=== PATIENT | female | born 1965 | race African-American/Black ===

== ENCOUNTER 2017-12-11 12:55 | Inpatient (IN) | payer SELFPAY ==
[2017-12-11 13:42] LABS: ALANINE AMINOTRANSFERASE 33 U/L (9-52); ALKALINE PHOSPHATASE 70 U/L (38-126); ANION GAP 13 (5-19); ASPARTATE AMINO TRANSFERASE 45 U/L (14-36); BILIRUBIN,DIRECT 0.4 mg/dL (0.0-0.4); BILIRUBIN,TOTAL 0.7 mg/dL (0.2-1.3); BLOOD UREA NITROGEN 13 mg/dL (7-20); CALCIUM 9.1 mg/dL (8.4-10.2); CARBON DIOXIDE 26 mmol/L (22-30); CHLORIDE 104 mmol/L (98-107); CREATINE KINASE 58 U/L (30-135); GLUCOSE 190 mg/dL (75-110); POTASSIUM 3.5 mmol/L (3.6-5.0); SODIUM 142.8 mmol/L (137-145); TOTAL PROTEIN 7.9 g/dL (6.3-8.2)
--- NOTE | 2017-12-11 13:49 | RADIOLOGY REPORT (SQ) ---
EXAM DESCRIPTION: CHEST SINGLE VIEW COMPLETED DATE/TIME: 12/11/2017 1:37 pm REASON FOR STUDY: bed 19 cp COMPARISON: Two-view chest 10/28/2014, 10/24/2010 EXAM PARAMETERS: NUMBER OF VIEWS: One view. TECHNIQUE: Single frontal radiographic view of the chest acquired. RADIATION DOSE: NA LIMITATIONS: None. FINDINGS: LUNGS AND PLEURA: No opacities, masses or pneumothorax. No pleural effusion. MEDIASTINUM AND HILAR STRUCTURES: No masses. Contour normal. HEART AND VASCULAR STRUCTURES: Heart normal in size. Normal vasculature. BONES: No acute findings. HARDWARE: None in the chest. OTHER: No other significant finding. IMPRESSION: NO ACUTE RADIOGRAPHIC FINDING IN THE CHEST. TECHNICAL DOCUMENTATION: JOB ID: [id number] [employer]- All Rights Reserved Reading location - IP/workstation name: [email or web address]
[2017-12-11 13:51] LABS: ABSOLUTE MONOCYTES (AUTO) 0.2 10^3/uL (0.1-1.4); ABSOLUTE NEUT (AUTO) 3.3 10^3/uL (1.7-8.2); BASOPHILS % (AUTO) 0.6 % (0-2); EOSINOPHILS % (AUTO) 0.3 % (0-6); HEMATOCRIT 40.2 % (36.0-47.0); HEMOGLOBIN 13.5 g/dL (12.0-15.5); LYMPHOCYTES % (AUTO) 22.9 % (13-45); MEAN CORPUSCULAR HGB CONC 33.6 g/dL (32.0-36.0); MEAN CORPUSCULAR VOLUME 86 fl (80-97); MONOCYTES % (AUTO) 4.1 % (3-13); PLATELET COUNT 204 10^3/uL (150-450); RED BLOOD COUNT 4.65 10^6/uL (3.72-5.28); RED CELL DISTRIBUTION WIDTH 14.5 % (11.5-14.0); SEGMENTED NEUTROPHILS % (AUTO) 72.1 % (42-78); TOTAL CELLS COUNTED % (AUTO) 100 %; WHITE BLOOD COUNT 4.5 10^3/uL (4.0-10.5)
[2017-12-11 13:53] LABS: CREATINE KINASE MB < 0.22 ng/mL (<4.55); TROPONIN I < 0.012 ng/mL
--- NOTE | 2017-12-11 14:05 | ER Document Report ---
ED Medical Screen (RME) - General Chief Complaint: Chest Pain Stated Complaint: CHEST PAIN Time Seen by Provider: 12/11/17 13:57 Notes: RAPID MEDICAL EVALUATION DISCLOSURE I have seen this patient as part of a Rapid Medical Evaluation and, if applicable, placed any initially appropriate orders. The patient will be seen and fully evaluated, including a full history and physical exam, by a provider ( in Main ED or Fast Track) when a room becomes available. 52-year-old female here with complaints of several episodes of dizziness chest pain shortness of breath blurry vision over the past 2 days. She states she does not have any other symptoms right now other than some dizziness. She has not taken anything for the symptoms. She denies any prior history of [place] CHF. EXAM CTAB RRR NOTE The patient states her right is here and she would like to leave AGAINST MEDICAL ADVICE. I have discussed with the patient that she could potentially go home and suffer from , disability, financial hardship. She would like to go because her ride is here however I have discussed with her the possibility that she might be having a heart attack. She would still like to go home despite being aware of these risks. She does acknowledge that she might go home and . JACEK Dominguez was present in the room during this conversation and ask as a witness. The patient would like to think at this time about whether or not she will actually stay for evaluation of her chest pain shortness of breath and other symptoms. TRAVEL OUTSIDE OF THE [place] IN LAST 30 DAYS: No - Related Data Allergies/Adverse Reactions: hydrocodone bitartrate [From Vicodin] Allergy (Verified 03/17/15 10:13) lidocaine [Lidocaine] Allergy (Verified 03/17/15 10:13) propoxyphene napsylate [From Darvocet-N 100] Allergy (Verified 03/17/15 10:13) Past Medical History - Social History Family history: DM, Hypertension, Malignancy - Past Medical History Cardiac Medical History: Reports: Hx Hypertension Neurological Medical History: Reports: Hx Migraine GI Medical History: Reports: Hx Gastroesophageal Reflux Disease Musculoskeltal Medical History: Reports Hx Musculoskeletal Trauma Past Surgical History: Reports: Hx Abdominal Surgery - hernia, Hx Breast Surgery - L biopsy, Hx Inguinal Hernia, Hx Tubal Ligation - Immunizations Immunizations up to date: Yes Hx Diphtheria, Pertussis, Tetanus Vaccination: Yes Physical Exam - Vital signs Vitals: Pulse Ox 100 12/11/17 12:55 Course - Vital Signs Vital signs: Temp Pulse Resp BP Pulse Ox 100 12/11/17 12:55 - Laboratory Result Diagrams: 12/11/17 13:25 12/11/17 12:39 Laboratory results interpreted by me: 12/11/17 12/11/17 12:39 13:25 RDW 14.5 H Potassium 3.5 L Glucose 190 H AST 45 H
--- NOTE | 2017-12-11 15:02 | ER Document Report ---
ED Cardiac - General Chief Complaint: Chest Pain Stated Complaint: CHEST PAIN Time Seen by Provider: 12/11/17 13:57 TRAVEL OUTSIDE OF THE [place] IN LAST 30 DAYS: No - HPI Notes: 52-year-old female with history of hypertension, noncompliant with medication for the past several years, presents with chest pain. She has been having generalized weakness, lightheadedness, and diaphoresis with exertion over the past week. She developed sharp chest pain with shortness of breath while sweeping today. It quickly resolved. It occurred again while walking and she became concerned. She reports feeling as if she would pass out and vision became blurred. EMS was called. Her blood pressure was elevated around 170/ 101 was given aspirin and nitroglycerin with improvement. Denies any recent long distance travel. No history of clots, hemoptysis, unilateral leg swelling. No hormone replacement therapy. Has strong family history of heart disease. Reports likely high cholesterol as well. - Related Data Allergies/Adverse Reactions: hydrocodone bitartrate [From Vicodin] Allergy (Verified 03/17/15 10:13) lidocaine [Lidocaine] Allergy (Verified 03/17/15 10:13) propoxyphene napsylate [From Darvocet-N 100] Allergy (Verified 03/17/15 10:13) Past Medical History - Social History Smoking Status: Current Every Day Smoker - Patient denies smoking to this provider Chew tobacco use (# tins/day): No Frequency of alcohol use: None Drug Abuse: None Family History: Reviewed & Not Pertinent, DM, Hypertension, Malignancy Patient has suicidal ideation: No Patient has homicidal ideation: No - Past Medical History Cardiac Medical History: Reports: Hx Hypertension Neurological Medical History: Reports: Hx Migraine Renal/ Medical History: Denies: Hx Peritoneal Dialysis GI Medical History: Reports: Hx Gastroesophageal Reflux Disease, Hx Ulcer Musculoskeletal Medical History: Reports Hx Musculoskeletal Trauma Past Surgical History: Reports: Hx Abdominal Surgery - hernia, Hx Breast Surgery - L biopsy, Hx Inguinal Hernia, Hx Tubal Ligation - Immunizations Immunizations up to date: Yes Hx Diphtheria, Pertussis, Tetanus Vaccination: Yes Review of Systems - Review of Systems Notes: REVIEW OF SYSTEMS: CONSTITUTIONAL: -fevers, -chills, + lightheadedness, dizziness, fatigue EENT: -eye pain, -difficulty swallowing, -nasal congestion CARDIOVASCULAR: +chest pain, -syncope. RESPIRATORY: -cough, +SOB GASTROINTESTINAL: -abdominal pain, +nausea, -vomiting, -diarrhea GENITOURINARY: -dysuria, -hematuria MUSCULOSKELETAL: -back pain, -neck pain SKIN: -rash or skin lesions. HEMATOLOGIC: -easy bruising or bleeding. LYMPHATIC: -swollen, enlarged glands. NEUROLOGICAL: -altered mental status or loss of consciousness, -headache, - neurologic symptoms PSYCHIATRIC: -anxiety, -depression. Physical Exam - Vital signs Vitals: Pulse Ox 100 12/11/17 12:55 - Notes Notes: PHYSICAL EXAMINATION: GENERAL: Well-appearing, well-nourished and in no acute distress. HEAD: Atraumatic, normocephalic. EYES: Pupils equal round and reactive to light, extraocular movements intact, conjunctiva are normal. ENT: nares patent, oropharynx clear without exudates. Moist mucous membranes. NECK: Normal range of motion, supple without lymphadenopathy LUNGS: Breath sounds clear to auscultation bilaterally and equal. No wheezes rales or rhonchi. HEART: Regular rate and rhythm, no chest wall tenderness ABDOMEN: Soft, nontender, normoactive bowel sounds. No guarding, no rebound. No masses appreciated. EXTREMITIES: Normal range of motion, no pitting or edema. No cyanosis. NEUROLOGICAL: Cranial nerves grossly intact. Normal speech, normal gait. Normal sensory and motor exams. PSYCH: Normal mood, normal affect. SKIN: Warm, Dry, normal turgor, no rashes or lesions noted. Course - Re-evaluation Re-evalutation: 12/11/17 15:02 Multiple risk factors for coronary disease. New T-wave flattening inferior and lateral leads compared to EKG done 2 years ago. First troponin normal. Discussed with hospitalist for admission. Repeat troponin pending. - Vital Signs Vital signs: Temp Pulse Resp BP Pulse Ox 100 12/11/17 12:55 - Laboratory Result Diagrams: 12/11/17 13:25 12/11/17 12:39 Laboratory results interpreted by me: 12/11/17 12/11/17 12:39 13:25 RDW 14.5 H Potassium 3.5 L Glucose 190 H AST 45 H - Diagnostic Test Radiology reviewed: Reports reviewed - EKG Interpretation by Me Rhythm: NSR When compared to previous EKG there are: Changes noted Discharge - Discharge Clinical Impression: Chest pain, Hypertension Disposition: ADMITTED OBSERVATION Admitting Provider: Hospitalist Unit Admitted: Telemetry
[2017-12-11] MEDS ORDERED: ONDANSETRON 4 MG TAB.RAPDIS PO PRN (17:38)
[2017-12-11] MEDS ORDERED: ACETAMINOPHEN 325 MG TABLET PO PRN (17:38)
[2017-12-11] MEDS ORDERED: DIPHENHYDRAMINE HCL 25 MG CAPSULE PO PRN (17:45)
[2017-12-11] MEDS ORDERED: DEXTROSE 50%-WATER 25 GM/50 ML DISP.SYRIN IV PRN ×2 (17:47)
[2017-12-11] MEDS ORDERED: GLUCAGON,HUMAN RECOMB 1 MG INJ SUBCUT PRN (17:47)
[2017-12-11] MEDS ORDERED: DEXTROSE 40% GEL 15 GM TUBE PO PRN ×2 (17:47)
[2017-12-11] MEDS ORDERED: HYDRALAZINE HCL INJ/PF 20 MG/1 ML SDV IV PRN (17:51)
--- NOTE | 2017-12-11 18:19 | PDOC H&P ---
History of Present Illness Admission Date/PCP: 12/11/17 15:19 The patient does not have a primary care provider History of Present Illness: RELL GREGORY is a 52 year old female who presented to the emergency room with chest pain and abdominal pain. Her past medical history significant for hypertension for which she has not been treated in quite some time. She states that for the past several months she has been having issues where she gets somewhat weak and dizzy. She knows that her blood pressure is up. She has no primary care provider because she does not have insurance and she has not been on any medications in september. She also reports a several month history of abdominal issues. She said she frequently has epigastric pain that is worse after she eats greasy foods. She states that she also has nausea and at times sometimes vomits. She also has issues with her bowel movements and sometimes has constipation. Again this is been going on for several months. Today she presents to the emergency room after having 2 episodes of sharp stabbing change pain in the middle of her chest. It rated it radiated up towards her neck. She states that she was somewhat lightheaded and weak and that she felt as if she was going to pass out. She sat down and rested and the pain resolved. The pain recurred again and EMS was called. She had accelerated hypertension when they arrived. Her blood pressure was reportedly 170/101. She was given a nitroglycerin with relief of her pain. She was brought to the emergency room for further evaluation and treatment. She does have a strong family history of coronary artery disease. Past Medical History Cardiac Medical History: Reports: Hypertension Pulmonary Medical History: Reports: None EENT Medical History: Reports: None Neurological Medical History: Reports: Migraine Endocrine Medical History: Reports: None Renal/ Medical History: Reports: None Malignancy Medical History: Reports: None GI Medical History: Reports: Gastroesophageal Reflux Disease Musculoskeltal Medical History: Reports: None Skin Medical History: Reports: None Psychiatric Medical History: Reports: None Traumatic Medical History: Reports: None Hematology: Reports: None Infectious Medical History: Reports: None Past Surgical History Past Surgical History: Reports: Tubal Ligation Social History Information Source: Patient Lives with: Family Smoking Status: Current Every Day Smoker - Patient denies smoking to this provider Frequency of Alcohol Use: None Drugs: None Hx Prescription Drug Abuse: No Family History Family History: Reviewed & Not Pertinent, DM, Hypertension, Malignancy Parental Family History Reviewed: Yes Children Family History Reviewed: Yes Sibling(s) Family History Reviewed.: Yes Medication/Allergy Home Medications: Diphenhydramine HCl [Benadryl 25 mg Capsule] 25 mg PO DAILYP PRN 12/11/17 Allergies/Adverse Reactions: hydrocodone bitartrate [From Vicodin] Allergy (Verified 03/17/15 10:13) lidocaine [Lidocaine] Allergy (Verified 03/17/15 10:13) propoxyphene napsylate [From Darvocet-N 100] Allergy (Verified 03/17/15 10:13) Review of Systems Constitutional: PRESENT: fatigue, weakness Eyes: ABSENT: visual disturbances Ears: ABSENT: hearing changes Nose, Mouth, and Throat: PRESENT: headache(s) Cardiovascular: PRESENT: chest pain, palpitations Respiratory: PRESENT: dyspnea Gastrointestinal: PRESENT: abdominal pain, constipation, heartburn, nausea, vomiting Genitourinary: ABSENT: dysuria, hematuria Musculoskeletal: ABSENT: joint swelling Integumentary: ABSENT: rash, wounds Psychiatric: ABSENT: anxiety, depression, homidical ideation, suicidal ideation Hematologic/Lymphatic: ABSENT: easy bleeding, easy bruising Physical Exam Vital Signs: Temp Pulse Resp BP Pulse Ox 98.2 F 12 142/82 H 94 12/11/17 17:02 12/11/17 17:02 12/11/17 17:02 12/11/17 17:02 General appearance: PRESENT: no acute distress, well-developed, well-nourished Head exam: PRESENT: atraumatic, normocephalic Eye exam: PRESENT: conjunctiva pink, EOMI, PERRLA. ABSENT: scleral icterus Ear exam: PRESENT: normal external ear exam Mouth exam: PRESENT: moist, tongue midline Neck exam: ABSENT: carotid bruit, JVD, lymphadenopathy, thyromegaly Respiratory exam: PRESENT: clear to auscultation danay. ABSENT: rales, rhonchi, wheezes Cardiovascular exam: PRESENT: RRR. ABSENT: diastolic murmur, rubs, systolic murmur Pulses: PRESENT: normal dorsalis pedis pul Vascular exam: PRESENT: normal capillary refill GI/Abdominal exam: PRESENT: normal bowel sounds, soft. ABSENT: distended, guarding, mass, organolmegaly, rebound, tenderness Rectal exam: PRESENT: deferred Extremities exam: PRESENT: full ROM. ABSENT: calf tenderness, clubbing, pedal edema Neurological exam: PRESENT: alert, awake, oriented to person, oriented to place , oriented to time, oriented to situation, CN II-XII grossly intact. ABSENT: motor sensory deficit Psychiatric exam: PRESENT: appropriate affect, normal mood. ABSENT: homicidal ideation, suicidal ideation Skin exam: PRESENT: dry, intact, warm. ABSENT: cyanosis, rash Results Impressions: Chest X-Ray 12/11/17 12:57 IMPRESSION: NO ACUTE RADIOGRAPHIC FINDING IN THE CHEST. Assessment & Plan - Diagnosis (1) Chest pain Is this a current diagnosis for this admission?: Yes Plan: The patient does have a strong family history of coronary artery disease. She does have some ST wave changes noted on her EKG as well. She will be placed in observation in the hospital. We will trend her serial troponins overnight. If these remain negative she will have a stress test performed in the morning. It also sounds as if the patient has been having significant GI issues. This is high on the differential as well. She could be having esophageal spasm, peptic ulcer disease or gallbladder disease. I am going to obtain a repeat liver panel in the morning. She does have a mildly elevated AST. She also will have an abdominal ultrasound. We will follow-up with these results. I am going to place her on PPI therapy. (2) Hypertensive urgency Is this a current diagnosis for this admission?: Yes Plan: The patient had hypertensive urgency when EMS arrived that resolved with nitroglycerin. Blood pressure has come down but is still in the she still has a systolic pressure in the 140s. I am going to place the patient on lisinopril. She would need medications on the $4 list. She certainly needs a primary care provider and we will try to get [facility]. (3) GERD (gastroesophageal reflux disease) Is this a current diagnosis for this admission?: Yes Plan: This has been untreated and she has been having worsening issues. I am going to place her on Prevacid twice daily. Certainly this could be contributing to her chest discomfort. (4) Hyperglycemia Is this a current diagnosis for this admission?: Yes Plan: The patient's blood sugar is 190. This could be reactive 2 her chest pain. However she could be developing diabetes. I am going to get a hemoglobin A1c and will check a chemistry panel in the morning. (5) Hypokalemia Is this a current diagnosis for this admission?: Yes Plan: This will be repleted. She will have a level drawn in the morning. - Time Time Spent: 50 to 70 Minutes - Inpatient Certification Medical Necessity: Other - The patient will be placed in observation in the hospital. She will have a stress test and abdominal ultrasound and repeat labs in the morning. I am hopeful that her hospitalization will span less than 2 midnights and she can be discharged tomorrow afternoon. She will need to [facility] at [facility] at discharge.
[2017-12-11 18:56] LABS: CREATINE KINASE MB 0.23 ng/mL (<4.55)
[2017-12-11 19:00] LABS: TROPONIN I < 0.012 ng/mL
[2017-12-11] MEDS ORDERED: LISINOPRIL 10 MG TABLET PO ONE (20:00)
[2017-12-11] MEDS ORDERED: ENOXAPARIN SODIUM INJ 40 MG/0.4 ML DISP.SYRIN SUBCUT ONE (20:00)
--- NOTE | 2017-12-11 20:08 | RADIOLOGY REPORT (SQ) ---
EXAM DESCRIPTION: U/S ABDOMEN COMPLETE W/O DOP COMPLETED DATE/TIME: 12/11/2017 7:22 pm REASON FOR STUDY: abdominal pain, chest pain COMPARISON: None TECHNIQUE: Dynamic and static grayscale images acquired of the abdomen and recorded on PACS. Irono arya selected color Doppler and spectral images recorded. LIMITATIONS: Study limited due to acoustical interference from fat or from air in the bowel. FINDINGS: PANCREAS: Poorly seen secondary to acoustical interference from fat or from air in the bow el. LIVER: No masses. No dilated ducts. LIVER VASCULATURE: Normal directional flow of the main portal vein and hepatic veins. GALLBLADDER: No stones. Normal wall thickness. No pericholecystic fluid. ULTRASOUND-DETECTED GARSIA'S SIGN: Negative. INTRAHEPATIC DUCTS AND COMMON DUCT:Poorly seen secondary to acoustical interference from fat or from air in the bowel. INFERIOR VENA CAVA: Normal flow. AORTA: No aneurysm. RIGHT KIDNEY: Normal size. Normal echogenicity. No solid or suspicious masses. No hydronephrosis. No calcifications. LEFT KIDNEY: Normal size. Normal echogenicity. No solid or suspicious masses. No hydronephrosis. No calcifications. SPLEEN:Normal size. No solid masses. PERITONEAL AND PLEURAL SPACES: No ascites or effusions. OTHER: No other significant finding. IMPRESSION: No acute findings identified. TECHNICAL DOCUMENTATION: JOB ID: [id number] 2010 [employer]- All Rights Reserved Reading location - IP/workstation name: [email or web address]
--- NOTE | 2017-12-11 23:14 | EKG REPORT ---
SEVERITY:- ABNORMAL ECG - SINUS RHYTHM NONSPECIFIC T ABNORMALITIES, DIFFUSE LEADS : Confirmed by: Izabela Diggs 11-Dec-2017 23:13:38
[2017-12-12 01:25] LABS: CREATINE KINASE MB < 0.22 ng/mL (<4.55); TROPONIN I < 0.012 ng/mL
[2017-12-12] MEDS ORDERED: LANSOPRAZOLE 30 MG TAB.RAP.DR PO SCH (06:00)
[2017-12-12 06:47] LABS: HEMATOCRIT 38.6 % (36.0-47.0); HEMOGLOBIN 12.9 g/dL (12.0-15.5); MEAN CORPUSCULAR HGB CONC 33.3 g/dL (32.0-36.0); MEAN CORPUSCULAR VOLUME 87 fl (80-97); PLATELET COUNT 201 10^3/uL (150-450); RED BLOOD COUNT 4.44 10^6/uL (3.72-5.28); RED CELL DISTRIBUTION WIDTH 14.5 % (11.5-14.0); WHITE BLOOD COUNT 4.4 10^3/uL (4.0-10.5)
[2017-12-12 07:02] LABS: ANION GAP 9 (5-19); BLOOD UREA NITROGEN 19 mg/dL (7-20); CALCIUM 8.7 mg/dL (8.4-10.2); CARBON DIOXIDE 32 mmol/L (22-30); CHLORIDE 104 mmol/L (98-107); CHOLESTEROL 153.94 mg/dL (0-200); CREATINE KINASE 43 U/L (30-135); GLUCOSE 104 mg/dL (75-110); PHOSPHORUS 3.8 mg/dL (2.5-4.5); POTASSIUM 3.5 mmol/L (3.6-5.0); TRIGLYCERIDES 70 mg/dL (<150)
[2017-12-12 07:13] LABS: CREATINE KINASE MB 0.25 ng/mL (<4.55); DIRECT LDL 66 mg/dL (<100)
[2017-12-12 07:21] LABS: TROPONIN I < 0.012 ng/mL
[2017-12-12 08:25] LABS: APPEARANCE,URINE CLEAR; BILIRUBIN,URINE NEGATIVE (NEGATIVE); COLOR,URINE YELLOW; GLUCOSE, URINE NEGATIVE (NEGATIVE); KETONES,URINE NEGATIVE (NEGATIVE); LEUKOCYTE ESTERASE,URINE NEGATIVE (NEGATIVE); NITRITE,URINE NEGATIVE (NEGATIVE); PROTEIN,URINE NEGATIVE (NEGATIVE); URINE SPECIFIC GRAVITY 1.024
[2017-12-12] MEDS: LISINOPRIL 10 MG TABLET PO SCH (11:46)
[2017-12-12] MEDS: ENOXAPARIN SODIUM INJ 40 MG/0.4 ML DISP.SYRIN SUBCUT SCH (11:47)
[2017-12-12] MEDS: DOCUSATE SODIUM 100 MG CAPSULE PO SCH (11:54)
[2017-12-12] MEDS ORDERED: REGADENOSON INJ 0.4 MG/5 ML DISP.SYRIN IV ONE (13:21)
--- NOTE | 2017-12-12 15:07 | DRAGON STRESS TEST REPORT ---
INTRAVENOUS LEXISCAN CARDIOLITE STRESS TEST USING SINGLE PHOTON EMMISION COMPUTERIZED TOMOGRAPHIC. DATE OF PROCEDURE: December 12, 2017, INDICATION : Chest pain CARDIAC RISK FACTORS: Diabetes, hypertension, tobacco abuse, family history of CAD RESTING EKG: Sinus rhythm without any baseline ST-T wave changes STRESS EKG: No significant ST segment changes noted with LexiScan bolus REASON FOR TERMINATION: Protocol. PROCEDURE REPORT: Baseline heart rate 57 beats per minute with blood pressure of 123/88. Patient had no significant complaints. Patient was bolused with Lexiscan 0.4 mg intravenously followed by saline bolus. Heart rate at 2 minutes post bolus 103 with a blood pressure of 158/70. 3 minutes post bolus heart rate 94 with blood pressure of 149/94. No significant EKG changes were noted. Patient had no significant complaints during the procedure or postprocedure. CONCLUSIONS: Normal EKG and hemodynamic response to IV LexiScan. NUCLEAR DATA: At rest the patient was given 13.87 millicuries of technetium 99 sestamibi injected intravenously. As per protocol rest gated SPECT images were obtained. On day of stress test, the patient was given intravenous LexiScan at a dose of 0.4 mg in 5 mL intravenously, followed by flush with normal saline. Subsequently the stress dose of 41.9 millicuries of technetium 99 sestamibi was injected intravenously. As per protocol stress gated images were obtained. NUCLEAR INTERPRETATION: Both raw and processed data were used for interpretation. Visual, qualitative, computer-generated quantitative data was used. There was good myocardial uptake of technetium compound. Motion artifact and soft tissue attenuations were noted. Increased visceral uptake was noted. No definitive areas of transient perfusion defect noted, No definitive areas of fixed perfusion defect or scars noted. EKG gated imaging showed LV EF at 60 %, rest and stress gated EF similar visually. T. I D. ratio was 1.26. Lung heart ratio noted to be within normal limits 0.32. No significant extracardiac and abnormal radiotracer activities were noted. RV free wall uptake was noted to be WNL. IMPRESSION: Also refer to comments under nuclear interpretation. Also test results needs to be interpreted in the context of pretest probability. 1. No definitive areas of transient perfusion defect noted. 2. There is no definitive scintigraphic evidence of myocardial infarction/scar. 3. EKG gated imaging shows left ventricular ejection fraction of approx. 60 %. 4. Borderline transient ischemic dilatation noted however based on recent literature review, Journal of nuclear medicine August 2013, transient ischemic dilatation in the absence of significant perfusion abnormality may not necessarily increased cardiovascular event rate. Clinical correlation requested as occasionally single vessel disease or balanced ischemia could be missed. In approximately 10% of the cases Lexiscan may not cause adequate vasodilatory stress. RECOMMENDATIONS: Aggressive risk factor modification and medical management. Further evaluation may be needed if continued symptoms or other high risk indicators are noted on clinical evaluation. Close cardiology follow-up is also recommended. Clinical correlation with echocardiogram derived ejection fraction. Inability to exercise by itself can lead to increased cardiovascular event risks. Consider cardiology consultation and or follow-up if clinically indicated. I am available for cardiology evaluation and consultation if requested by the wildlife management professor, unless patient already has a mounting inspector. Dr. Jael Diggs. MRCP Board certified in cardiology and sleep medicine. Board certified in nuclear cardiology, adult echocardiography. ARCENIO
[2017-12-12] MEDS ORDERED: LANSOPRAZOLE 30 MG TAB.RAP.DR PO ONE (16:30)
--- NOTE | 2017-12-12 20:36 | PDOC PROGRESS REPORT ---
Subjective Progress Note for:: 12/12/17 Subjective:: no furhtur CP, no dyspnea, some epigastric abd pain with no nausea or emesis. Reason For Visit: CHEST PAIN Physical Exam Vital Signs: Temp Pulse Resp BP Pulse Ox 98.6 F 63 20 124/81 99 12/12/17 15:39 12/12/17 15:39 12/12/17 15:39 12/12/17 15:39 12/12/17 15:39 Intake & Output 12/11/17 12/12/17 12/13/17 06:59 06:59 06:59 Intake Total 320 Output Total 1100 Balance -780 Weight 92.3 kg General appearance: PRESENT: no acute distress, cooperative, well-developed, well-nourished Head exam: PRESENT: atraumatic, normocephalic Eye exam: ABSENT: conjunctival injection, scleral icterus Ear exam: PRESENT: normal external ear exam Mouth exam: PRESENT: moist, tongue midline Respiratory exam: PRESENT: clear to auscultation danay, unlabored. ABSENT: rales , rhonchi, wheezes Cardiovascular exam: PRESENT: RRR. ABSENT: diastolic murmur, systolic murmur Pulses: PRESENT: normal radial pulses GI/Abdominal exam: PRESENT: normal bowel sounds, soft. ABSENT: distended, guarding, tenderness Rectal exam: PRESENT: deferred Extremities exam: ABSENT: pedal edema Neurological exam: PRESENT: alert, awake, oriented to person, oriented to place , oriented to situation, CN II-XII grossly intact Psychiatric exam: PRESENT: appropriate affect. ABSENT: anxious Skin exam: PRESENT: dry, intact, warm Results Laboratory Results: 12/12/17 06:28 12/12/17 06:28 12/12/17 12/12/17 12/12/17 06:28 06:28 06:28 WBC 4.4 RBC 4.44 Hgb 12.9 Hct 38.6 MCV 87 MCH 29.0 MCHC 33.3 RDW 14.5 H Plt Count 201 Sodium 145.0 Potassium 3.5 L Chloride 104 Carbon Dioxide 32 H Anion Gap 9 BUN 19 Creatinine 0.95 Est GFR ( Amer) > 60 Est GFR (Non-Af Amer) > 60 Glucose 104 Calcium 8.7 Phosphorus 3.8 Magnesium 1.8 Triglycerides 70 Cholesterol 153.94 LDL Cholesterol Direct 66 VLDL Cholesterol 14.0 HDL Cholesterol 57 TSH 1.38 Urine Color Urine Appearance Urine pH Ur Specific [place] Urine Protein Urine Glucose (UA) Urine Ketones Urine Blood Urine Nitrite Ur Leukocyte Esterase Urine WBC (Auto) Urine RBC (Auto) 12/12/17 07:30 WBC RBC Hgb Hct MCV MCH MCHC RDW Plt Count Sodium Potassium Chloride Carbon Dioxide Anion Gap BUN Creatinine Est GFR ( Amer) Est GFR (Non-Af Amer) Glucose Calcium Phosphorus Magnesium Triglycerides Cholesterol LDL Cholesterol Direct VLDL Cholesterol HDL Cholesterol TSH Urine Color YELLOW Urine Appearance CLEAR Urine pH 5.0 Ur Specific [place] 1.024 Urine Protein NEGATIVE Urine Glucose (UA) NEGATIVE Urine Ketones NEGATIVE Urine Blood NEGATIVE Urine Nitrite NEGATIVE Ur Leukocyte Esterase NEGATIVE Urine WBC (Auto) 3 Urine RBC (Auto) 0 12/11/17 12/11/17 12/12/17 18:23 18:23 00:26 Creatine Kinase 60 48 CK-MB (CK-2) 0.23 Troponin I < 0.012 12/12/17 12/12/17 12/12/17 00:26 06:28 06:28 Creatine Kinase 43 CK-MB (CK-2) < 0.22 0.25 Troponin I < 0.012 < 0.012 Impressions: Abdomen Ultrasound 12/11/17 00:00 IMPRESSION: No acute findings identified. Chest X-Ray 12/11/17 12:57 IMPRESSION: NO ACUTE RADIOGRAPHIC FINDING IN THE CHEST. Assessment & Plan - Diagnosis (1) Chest pain Is this a current diagnosis for this admission?: Yes Plan: Resolved. Cardiac stress test negative. ABd US neg. Has epigasric pain which coudl be related. Now on PPI and will follow. (2) GERD (gastroesophageal reflux disease) Is this a current diagnosis for this admission?: Yes Plan: cont PPI, will need close PCP follow up to eval epigastric pain and GERD. (3) Hyperglycemia Is this a current diagnosis for this admission?: Yes Plan: resolved, hgb a1c is 5.4 (4) Hypertension Is this a current diagnosis for this admission?: Yes Plan: resolved, possibley due to anxiety. Have referred for PCP followup. (5) Depression Is this a current diagnosis for this admission?: Yes Plan: Patient reports that recently her sister and father and she was there caretakers. Her mother is chronically ill and she cares for her mother. Patient struggles with depression, probably bereavement as well. Is not suicidal. We have referred her to the [facility] for PCP care and also for mental health care. I have spoken with our counter caser about a possible hospice referral for bereavement support. - Time Time Spent with patient: 15-24 minutes
[2017-12-12] MEDS ORDERED: HYDRALAZINE HCL INJ/PF 20 MG/1 ML SDV IV PRN (20:57)
[2017-12-12] MEDS: LANSOPRAZOLE 30 MG TAB.RAP.DR PO SCH (21:27)
[2017-12-12] MEDS: MORPHINE SULFATE 10 MG/ML INJ INJ PRN (21:27)
--- NOTE | 2017-12-12 22:16 | EKG REPORT ---
SEVERITY:- NORMAL ECG - SINUS RHYTHM : Confirmed by: Izabela Diggs 12-Dec-2017 22:15:50
[2017-12-13] MEDS: MORPHINE SULFATE 10 MG/ML INJ INJ PRN ×2 (07:46→11:19)
[2017-12-13] MEDS ORDERED: METOCLOPRAMIDE HCL ORAL SOLN 10 MG/10 ML UDCUP PO ONE (09:00)
[2017-12-13] MEDS ORDERED: LIDOCAINE 2% VISCOUS SOLN 20 ML UDCUP PO ONE (09:00)
[2017-12-13] MEDS ORDERED: MAG HYDROX/AL HYDROX/SIMETH SUSP 30 ML UDCUP PO ONE (09:00)
[2017-12-13] MEDS: LANSOPRAZOLE 30 MG TAB.RAP.DR PO SCH ×2 (10:49→22:31)
[2017-12-13] MEDS: ENOXAPARIN SODIUM INJ 40 MG/0.4 ML DISP.SYRIN SUBCUT SCH (10:49)
[2017-12-13] MEDS: LISINOPRIL 10 MG TABLET PO SCH (10:49)
[2017-12-13] MEDS: DOCUSATE SODIUM 100 MG CAPSULE PO SCH (10:49)
[2017-12-13] MEDS ORDERED: HYDROMORPHONE HCL INJ/PF 2 MG/ML AMPULE ONE (15:00)
[2017-12-13] MEDS: HYDROMORPHONE HCL INJ/PF 2 MG/ML AMPULE IV PRN ×2 (18:41→22:33)
--- NOTE | 2017-12-13 19:48 | PDOC PROGRESS REPORT ---
Subjective Progress Note for:: 12/13/17 Subjective:: Patient is not having chest pain. She now has fairly intense epigastric pain. No hematemesis, no coffee-ground emesis, no melena. She has received a few to doses of morphine and this is not helping the pain. She has never been diagnosed with peptic ulcer or H. pylori disease. He does have a lot of stress in her life right now. No nausea vomiting, no constipation no diarrhea. No dysuria. No dyspnea. Reason For Visit: CHEST PAIN Physical Exam Vital Signs: Temp Pulse Resp BP Pulse Ox 98.0 F 65 16 144/75 H 95 12/13/17 11:11 12/13/17 19:00 12/13/17 11:11 12/13/17 11:11 12/13/17 11:11 Intake & Output 12/12/17 12/13/17 12/14/17 06:59 06:59 06:59 Intake Total 320 240 Output Total 1360 Balance -1040 240 Weight 72.3 kg 71.6 kg General appearance: PRESENT: mild distress, well-developed, well-nourished Head exam: PRESENT: atraumatic, normocephalic Eye exam: ABSENT: conjunctival injection, scleral icterus Ear exam: PRESENT: normal external ear exam Mouth exam: PRESENT: moist, neck supple, tongue midline Respiratory exam: PRESENT: clear to auscultation danay, unlabored. ABSENT: rales , rhonchi, wheezes Cardiovascular exam: PRESENT: RRR, systolic murmur Pulses: PRESENT: normal radial pulses GI/Abdominal exam: PRESENT: firm, mass, normal bowel sounds, soft, tenderness. ABSENT: distended, guarding, rebound Rectal exam: PRESENT: deferred Extremities exam: ABSENT: pedal edema Neurological exam: PRESENT: alert, awake, oriented to person, oriented to place , oriented to situation, CN II-XII grossly intact Psychiatric exam: PRESENT: anxious Skin exam: PRESENT: dry, intact, warm Results Laboratory Results: 12/12/17 06:28 12/12/17 06:28 12/11/17 12/11/17 12/12/17 18:23 18:23 00:26 Creatine Kinase 60 48 CK-MB (CK-2) 0.23 Troponin I < 0.012 07/20/18 07/20/18 07/20/18 00:26 06:28 06:28 Creatine Kinase 43 CK-MB (CK-2) < 0.22 0.25 Troponin I < 0.012 < 0.012 Impressions: Abdomen Ultrasound 12/11/17 00:00 IMPRESSION: No acute findings identified. Chest X-Ray 12/11/17 12:57 IMPRESSION: NO ACUTE RADIOGRAPHIC FINDING IN THE CHEST. Assessment & Plan - Diagnosis (1) Epigastric pain Is this a current diagnosis for this admission?: Yes Plan: Pain been fairly severe today. Low-dose morphine did not help. Tylenol did not help. Secondary to the possibility of peptic ulcer disease I do not want to use NSAIDs. I started her on Dilaudid 0.5 mg IV every 4 hours as needed severe pain. I do not plan to discharge her on opioids. I have ordered fecal occult blood test and H. pylori stool antigen. We administered a GI cocktail but the patient has a lidocaine allergy so she could not take that part of the preparation. (2) Chest pain Is this a current diagnosis for this admission?: Yes Plan: Resolved. Nonischemic Lexiscan. Patient's chest pain is possibly related to epigastric pain. (3) GERD (gastroesophageal reflux disease) Is this a current diagnosis for this admission?: Yes Plan: Patient is on twice daily PPI. She may have peptic ulcer disease or H. pylori and will remain on PPI for this reason as well while studies are pending. (4) Hyperglycemia Is this a current diagnosis for this admission?: Yes Plan: Glucose not concerning this morning. Eating and drinking well. (5) Hypertension Is this a current diagnosis for this admission?: Yes Plan: Resolved to normal. Patient is now on her regular lisinopril 10 mg daily.. (6) Depression Is this a current diagnosis for this admission?: Yes Plan: Patient may have some depression and she definitely has bereavement. I have asked machine adjuster leader case trim to talk to her about bereavement services offered by local hospice and they have done so. She is interested in availing herself of those services. She is not actively suicidal. - Time Time Spent with patient: 25-34 minutes Medications reviewed and adjusted accordingly: Yes Anticipated discharge: Home - Inpatient Certification Based on my medical assessment, after consideration of the patient's comorbidities, presenting symptoms, or acuity I expect that the services needed warrant INPATIENT care.: Yes I certify that my determination is in accordance with my understanding of Medicare's requirements for reasonable and necessary INPATIENT services [42 CFR 412.3e].: Yes Medical Necessity: Need for Pain Control
[2017-12-14 08:10] LABS: HEMATOCRIT 36.7 % (36.0-47.0); HEMOGLOBIN 12.2 g/dL (12.0-15.5); MEAN CORPUSCULAR HEMOGLOBIN 28.7 pg (27.0-33.4); MEAN CORPUSCULAR HGB CONC 33.2 g/dL (32.0-36.0); MEAN CORPUSCULAR VOLUME 86 fl (80-97); PLATELET COUNT 184 10^3/uL (150-450); RED BLOOD COUNT 4.25 10^6/uL (3.72-5.28); RED CELL DISTRIBUTION WIDTH 14.5 % (11.5-14.0); WHITE BLOOD COUNT 4.5 10^3/uL (4.0-10.5)
[2017-12-14 08:17] LABS: ANION GAP 10 (5-19); BLOOD UREA NITROGEN 20 mg/dL (7-20); CALCIUM 8.5 mg/dL (8.4-10.2); CARBON DIOXIDE 29 mmol/L (22-30); CHLORIDE 104 mmol/L (98-107); GLUCOSE 88 mg/dL (75-110); POTASSIUM 3.7 mmol/L (3.6-5.0); SODIUM 143.1 mmol/L (137-145)
[2017-12-14] MEDS ORDERED: ACETAMINOPHEN 325 MG TABLET PO PRN (08:19)
[2017-12-14] MEDS: ENOXAPARIN SODIUM INJ 40 MG/0.4 ML DISP.SYRIN SUBCUT SCH (09:28)
[2017-12-14] MEDS: LISINOPRIL 10 MG TABLET PO SCH (09:31)
[2017-12-14] MEDS: LANSOPRAZOLE 30 MG TAB.RAP.DR PO SCH ×2 (09:31→21:16)
[2017-12-14] MEDS: DOCUSATE SODIUM 100 MG CAPSULE PO SCH (09:32)
[2017-12-14] MEDS: HYDROMORPHONE HCL INJ/PF 2 MG/ML AMPULE IV PRN ×3 (09:33→21:20)
[2017-12-14] MEDS ORDERED: SENNOSIDES/DOCUSATE 8.6-50 MG 1 EACH TABLET PO ONE (13:30)
--- NOTE | 2017-12-14 19:55 | PDOC PROGRESS REPORT ---
Subjective Progress Note for:: 12/14/17 Subjective:: Patient still has epigastric abdominal pain. She tells me today that she has a history of bleeding ulcers. She has not been able to produce a bowel movement so that we can check for blood or H. pylori. She is also not having nausea or vomiting. She is eating and drinking out difficulty. No chest pain. No difficulty breathing. No dysuria. Reason For Visit: CHEST PAIN Physical Exam Vital Signs: Temp Pulse Resp BP Pulse Ox 98.1 F 63 18 138/72 H 99 12/14/17 14:57 12/14/17 14:57 12/14/17 14:57 12/14/17 14:57 12/14/17 14:57 Intake & Output 12/13/17 12/14/17 12/15/17 06:59 06:59 06:59 Intake Total 320 1800 905 Output Total 1360 1700 1350 Balance -1040 100 -445 Weight 71.6 kg 71.5 kg General appearance: PRESENT: no acute distress, cooperative, well-developed, well-nourished Eye exam: ABSENT: conjunctival injection, scleral icterus Mouth exam: PRESENT: moist, tongue midline Respiratory exam: PRESENT: clear to auscultation danay, unlabored. ABSENT: rales , rhonchi, wheezes Cardiovascular exam: PRESENT: RRR. ABSENT: systolic murmur Pulses: PRESENT: normal radial pulses GI/Abdominal exam: PRESENT: normal bowel sounds, soft, tenderness, other - Epigastric tenderness to palpation without rebound or guarding. ABSENT: distended, firm, guarding Extremities exam: ABSENT: pedal edema Musculoskeletal exam: PRESENT: normal inspection Neurological exam: PRESENT: alert, awake, oriented to person, oriented to place , oriented to situation, CN II-XII grossly intact Psychiatric exam: PRESENT: anxious. ABSENT: appropriate affect Skin exam: PRESENT: dry, intact, warm Results Laboratory Results: 12/14/17 07:19 12/14/17 07:19 12/14/17 12/14/17 07:19 07:19 WBC 4.5 RBC 4.25 Hgb 12.2 Hct 36.7 MCV 86 MCH 28.7 MCHC 33.2 RDW 14.5 H Plt Count 184 Sodium 143.1 Potassium 3.7 Chloride 104 Carbon Dioxide 29 Anion Gap 10 BUN 20 Creatinine 0.97 Est GFR ( Amer) > 60 Est GFR (Non-Af Amer) > 60 Glucose 88 Calcium 8.5 12/11/17 12/11/17 12/12/17 18:23 18:23 00:26 Creatine Kinase 60 48 CK-MB (CK-2) 0.23 Troponin I < 0.012 12/12/17 12/12/17 12/12/17 00:26 06:28 06:28 Creatine Kinase 43 CK-MB (CK-2) < 0.22 0.25 Troponin I < 0.012 < 0.012 Impressions: Abdomen Ultrasound 12/11/17 00:00 IMPRESSION: No acute findings identified. Chest X-Ray 12/11/17 12:57 IMPRESSION: NO ACUTE RADIOGRAPHIC FINDING IN THE CHEST. Assessment & Plan - Diagnosis (1) Epigastric pain Is this a current diagnosis for this admission?: Yes Plan: Patient shared with me today that she has a history of bleeding ulcers. I have not been able to check a fecal occult blood or an pylori stool antigen. Those are ordered and pending. Given the history that she shared with me today I think that an upper endoscopy would be prudent and we can speak with the surgeon or employee placement specialist tomorrow to see if that would be possible. She tells me that she has a family history of gastric cancer. There is no sign of active or significant bleeding at this time. (2) Chest pain Is this a current diagnosis for this admission?: Yes Plan: Resolved. Negative stress test. (3) GERD (gastroesophageal reflux disease) Is this a current diagnosis for this admission?: Yes Plan: Continue twice daily PPI. (4) Hyperglycemia Is this a current diagnosis for this admission?: Yes Plan: Resolved. Glucose has been normal for the last few days. (5) Hypertension Is this a current diagnosis for this admission?: Yes Plan: Pressure has been well controlled today. No changes. (6) Depression Is this a current diagnosis for this admission?: Yes Plan: Patient also has bereavement. She is not suicidal. She had 2 family members recently. She is responsible for the care of her very sick mother. We have suggested to her bereavement services from 1 of the local hospice companies , she has spoken with the associate merchandise planner about this. - Time Time Spent with patient: 15-24 minutes - Inpatient Certification Based on my medical assessment, after consideration of the patient's comorbidities, presenting symptoms, or acuity I expect that the services needed warrant INPATIENT care.: Yes I certify that my determination is in accordance with my understanding of Medicare's requirements for reasonable and necessary INPATIENT services [42 CFR 412.3e].: Yes Medical Necessity: Need Close Monitoring Due to Risk of Patient Decompensation
[2017-12-15] MEDS: HYDROMORPHONE HCL INJ/PF 2 MG/ML AMPULE IV PRN ×4 (05:52→20:19)
[2017-12-15] MEDS: LISINOPRIL 10 MG TABLET PO SCH (10:09)
[2017-12-15] MEDS: LANSOPRAZOLE 30 MG TAB.RAP.DR PO SCH ×2 (10:10→22:56)
[2017-12-15] MEDS: ENOXAPARIN SODIUM INJ 40 MG/0.4 ML DISP.SYRIN SUBCUT SCH (10:12)
--- NOTE | 2017-12-15 18:20 | RADIOLOGY REPORT (SQ) ---
EXAM DESCRIPTION: CT ABD/PELVIS NO ORAL OR IV COMPLETED DATE/TIME: 12/15/2017 6:06 pm REASON FOR STUDY: Severe Epigastric pain COMPARISON: 10/18/2013. TECHNIQUE: CT scan of the abdomen and pelvis performed with oral contrast and no intravenous contras t. Images reviewed with lung, soft tissue, and bone windows. Reconstructed coronal and sagittal MPR i mages reviewed. All images stored on PACS. All CT scanners at this facility use dose modulation, iterative reconstruction, and/or weight based d osing when appropriate to reduce radiation dose to as low as reasonably achievable (ALARA). [facility]: Dose Right [facility]: CareDose [facility]: Dose Right [facility]: Teradose 4D [facility]: [employer] RADIATION DOSE: CT Rad equipment meets quality standard of care and radiation dose reduction techniq ues were employed. CTDIvol: 6.0 mGy. DLP: 308 mGy-cm.mGy. LIMITATIONS: None. FINDINGS: LOWER CHEST: No significant findings. No nodules or infiltrates. NON-CONTRASTED LIVER, SPLEEN, ADRENALS: Evaluation limited by lack of IV contrast. No identified sign ificant masses. PANCREAS: No masses. No peripancreatic inflammatory changes. GALLBLADDER: No identified stones by CT criteria. No inflammatory changes to suggest cholecystitis. RIGHT KIDNEY AND URETER: No solid masses. No significant calcification. No hydronephrosis or hydroure ter. LEFT KIDNEY AND URETER: No solid masses. No significant calcification. No hydronephrosis or hydrouret er. AORTA AND RETROPERITONEUM: No aneurysm. No retroperitoneal masses or adenopathy. BOWEL AND PERITONEAL CAVITY: No obvious masses or inflammatory changes. No free fluid. APPENDIX: Normal. PELVIS, BLADDER, AND ABDOMINAL WALL: No abnormal pelvic masses. No abdominal wall hernias. Bladder un remarkable. BONES: No significant findings. OTHER: No other significant finding. IMPRESSION: NO SIGNIFICANT OR ACUTE ABDOMINAL PROCESS. TECHNICAL DOCUMENTATION: JOB ID: [id number] Quality ID # [id number]: Final reports with documentation of one or more dose reduction techniques (e.g., Au tomated exposure control, adjustment of the mA and/or kV according to patient size, use of iterative reconstruction technique) 2010 [employer]- All Rights Reserved Reading location - IP/workstation name: [email or web address]
--- NOTE | 2017-12-15 19:11 | PDOC PROGRESS REPORT ---
Subjective Progress Note for:: 12/15/17 Subjective:: Still with abdominal pain, mostly epigastric. Admits to having been stressed. Denies fever or chills, has intermittent nausea, no vomiting. Denies any more chest pain. Reason For Visit: CHEST PAIN Physical Exam Vital Signs: Temp Pulse Resp BP Pulse Ox 98.3 F 57 L 17 149/88 H 100 12/15/17 15:28 12/15/17 15:28 12/15/17 15:28 12/15/17 15:28 12/15/17 15:28 Intake & Output 12/14/17 12/15/17 12/16/17 06:59 06:59 06:59 Intake Total 1800 905 Output Total 1700 1350 1100 Balance 100 -445 -1100 Weight 71.5 kg 71.3 kg General appearance: PRESENT: no acute distress, cooperative, well-developed, well-nourished Eye exam: ABSENT: conjunctival injection, scleral icterus Mouth exam: PRESENT: moist, tongue midline Respiratory exam: PRESENT: clear to auscultation danay, unlabored. ABSENT: rales , rhonchi, wheezes Cardiovascular exam: PRESENT: RRR. ABSENT: systolic murmur Pulses: PRESENT: normal radial pulses GI/Abdominal exam: PRESENT: normal bowel sounds, soft, other - Epigastric tenderness to palpation without rebound or guarding. ABSENT: distended, firm, guarding Extremities exam: ABSENT: pedal edema Musculoskeletal exam: PRESENT: normal inspection Neurological exam: PRESENT: alert, awake, oriented to person, oriented to place , oriented to situation, CN II-XII grossly intact Psychiatric exam: PRESENT: anxious. ABSENT: appropriate affect Skin exam: PRESENT: dry, intact, warm Results Laboratory Results: 12/14/17 07:19 12/14/17 07:19 12/11/17 12/11/17 12/12/17 18:23 18:23 00:26 Creatine Kinase 60 48 CK-MB (CK-2) 0.23 Troponin I < 0.012 12/12/17 12/12/17 12/12/17 00:26 06:28 06:28 Creatine Kinase 43 CK-MB (CK-2) < 0.22 0.25 Troponin I < 0.012 < 0.012 Impressions: Abdomen Ultrasound 12/11/17 00:00 IMPRESSION: No acute findings identified. Chest X-Ray 12/11/17 12:57 IMPRESSION: NO ACUTE RADIOGRAPHIC FINDING IN THE CHEST. Abdomen/Pelvis CT 12/15/17 00:00 IMPRESSION: NO SIGNIFICANT OR ACUTE ABDOMINAL PROCESS. Assessment & Plan - Plan Summary Plan Summary: (1) Epigastric pain Is this a current diagnosis for this admission?: Yes Plan: Patient reported a history of bleeding ulcers. She also reports a family history of gastric cancer. There is no sign of active or significant bleeding at this time. I have consulted Dr. Douglas of surgery for evaluation and possible EGD, and he recommended abdomen CT, which was negative. He is to evaluate patient. (2) Chest pain Is this a current diagnosis for this admission?: Yes Plan: Resolved. Negative stress test. (3) GERD (gastroesophageal reflux disease) Is this a current diagnosis for this admission?: Yes Plan: Continue twice daily PPI. (4) Hyperglycemia Is this a current diagnosis for this admission?: Yes Plan: Resolved. Glucose has been normal for the last few days. (5) Hypertension Is this a current diagnosis for this admission?: Yes Plan: Pressure has been well controlled today. No changes. (6) Depression Is this a current diagnosis for this admission?: Yes Plan: Patient also has bereavement. She is not suicidal. She had 2 family members within the past 2 years. She is responsible for the care of her very sick mother. We have suggested to her bereavement services from 1 of the local hospice companies, and she has spoken with the menu planner about this.
--- NOTE | 2017-12-15 22:49 | PDOC CONSULTATION ---
Consultation Consult Date: 12/15/17 Consult reason:: Evaluate epigastric abdominal pain History of Present Illness Admission Date/PCP: 12/11/17 15:19 History of Present Illness: RELL GREGORY is a 52 year old female presenting with about 1 week history of intermittent epigastric abdominal pain. Patient notes that it feels like a knot in the pit of her stomach. She notes that the pain is worsened with p.o. intake. Uncertain of any relieving factors. She has associated heartburn symptoms as well. No diarrhea. No emesis. No history of alcohol nor NSAID abuse. Patient seems to think that she had history of ulcers in the past however. No prior upper endoscopies however. She has family history of abdominal malignancies but really unsure what types. Past Medical History Cardiac Medical History: Reports: Hypertension Denies: Congestive Heart Failure, Myocardial Infarction Pulmonary Medical History: Reports: None Denies: Asthma, Bronchitis, Chronic Obstructive Pulmonary Disease (COPD), Pneumonia, Tuberculosis EENT Medical History: Reports: None Neurological Medical History: Reports: Migraine Denies: Seizures Endocrine Medical History: Reports: None Renal/ Medical History: Reports: None Denies: End Stage Renal Disease Malignancy Medical History: Reports: None GI Medical History: Reports: Gastroesophageal Reflux Disease Denies: Cirrhosis Musculoskeltal Medical History: Reports: None Denies: Arthritis Skin Medical History: Reports: None Psychiatric Medical History: Reports: None, Depression Denies: Bipolar Disorder Traumatic Medical History: Reports: None Hematology: Reports: None, Anemia Denies: Bleeding Tendencies Infectious Medical History: Reports: None Past Surgical History Past Surgical History: Reports: Tubal Ligation Social History Lives with: Family Smoking Status: Current Some Day Smoker Frequency of Alcohol Use: None Drugs: None Hx Prescription Drug Abuse: No - Advance Directive Resuscitation Status: Full Code Family History Family History: Reviewed & Not Pertinent, DM, Hypertension, Malignancy Parental Family History Reviewed: Yes Children Family History Reviewed: Yes Sibling(s) Family History Reviewed.: Yes Medication/Allergy Home Medications: Diphenhydramine HCl [Benadryl 25 mg Capsule] 25 mg PO DAILYP PRN 12/11/17 Allergies/Adverse Reactions: Iodine and Iodide Containing Produc Allergy (Intermediate, Verified 12/15/17 16: 17) itching hydrocodone bitartrate [From Vicodin] Allergy (Verified 03/17/15 10:13) lidocaine [Lidocaine] Allergy (Verified 03/17/15 10:13) propoxyphene napsylate [From Darvocet-N 100] Allergy (Verified 03/17/15 10:13) shellfish derived Allergy (Verified 12/15/17 16:23) itching Physical Exam Vital Signs: Temp Pulse Resp BP Pulse Ox 98.3 F 61 15 124/89 H 96 12/15/17 19:52 12/15/17 19:52 12/15/17 19:52 12/15/17 19:52 12/15/17 19:52 Intake & Output 12/14/17 12/15/17 12/16/17 06:59 06:59 06:59 Intake Total 1800 905 Output Total 1700 1350 1100 Balance 100 -445 -1100 Weight 71.5 kg 71.3 kg General appearance: PRESENT: no acute distress, cooperative Eye exam: PRESENT: conjunctiva pink Respiratory exam: PRESENT: clear to auscultation danay Cardiovascular exam: PRESENT: RRR GI/Abdominal exam: PRESENT: soft - Soft, nondistended, minimal epigastric abdominal tenderness with no peritoneal signs and no palpable abnormal masses. No palpable hepatosplenomegaly. Neurological exam: PRESENT: alert, awake Psychiatric exam: PRESENT: appropriate affect Skin exam: PRESENT: warm Results Laboratory Results: 12/14/17 07:19 12/14/17 07:19 12/11/17 12/11/17 12/12/17 18:23 18:23 00:26 Creatine Kinase 60 48 CK-MB (CK-2) 0.23 Troponin I < 0.012 12/12/17 12/12/17 12/12/17 00:26 06:28 06:28 Creatine Kinase 43 CK-MB (CK-2) < 0.22 0.25 Troponin I < 0.012 < 0.012 Impressions: Abdomen Ultrasound 12/11/17 00:00 IMPRESSION: No acute findings identified. Chest X-Ray 12/11/17 12:57 IMPRESSION: NO ACUTE RADIOGRAPHIC FINDING IN THE CHEST. Abdomen/Pelvis CT 12/15/17 00:00 IMPRESSION: NO SIGNIFICANT OR ACUTE ABDOMINAL PROCESS. Assessment & Plan - Diagnosis (1) Epigastric pain Is this a current diagnosis for this admission?: Yes Plan: Epigastric abdominal pain of unclear etiology. Ultrasound was negative for gallstones. Abdominal CT demonstrates no significant intra-abdominal abnormalities although IV contrast could not be used possible allergies. Certainly gastritis is in the differential diagnosis. I will plan upper endoscopy tomorrow. I have discussed with the patient the risk and benefits of the procedure including risk of intestinal injury and bleeding. As well as cardiopulmonary complications. Patient understands and agrees to proceed. We will make the patient n.p.o. for the study tomorrow. She is 52 and she has had no colonoscopies in the past. I do recommend a colonoscopy as an outpatient. I have discussed this recommendation with the patient.
[2017-12-16] MEDS: HYDROMORPHONE HCL INJ/PF 2 MG/ML AMPULE IV PRN ×4 (00:59→18:42)
[2017-12-16 06:49] LABS: ABSOLUTE EOSINOPHILS # (AUTO) 0.1 10^3/uL (0.0-0.6); ABSOLUTE LYMPHOCYTES (AUTO) 2.1 10^3/uL (0.5-4.7); ABSOLUTE MONOCYTES (AUTO) 0.3 10^3/uL (0.1-1.4); ABSOLUTE NEUT (AUTO) 1.7 10^3/uL (1.7-8.2); BASOPHILS % (AUTO) 0.8 % (0-2); EOSINOPHILS % (AUTO) 2.4 % (0-6); HEMATOCRIT 36.2 % (36.0-47.0); HEMOGLOBIN 12.2 g/dL (12.0-15.5); LYMPHOCYTES % (AUTO) 49.2 % (13-45); MEAN CORPUSCULAR HGB CONC 33.7 g/dL (32.0-36.0); MEAN CORPUSCULAR VOLUME 86 fl (80-97); PLATELET COUNT 172 10^3/uL (150-450); RED BLOOD COUNT 4.21 10^6/uL (3.72-5.28); RED CELL DISTRIBUTION WIDTH 14.4 % (11.5-14.0); SEGMENTED NEUTROPHILS % (AUTO) 39.6 % (42-78); TOTAL CELLS COUNTED % (AUTO) 100 %; WHITE BLOOD COUNT 4.2 10^3/uL (4.0-10.5)
[2017-12-16 07:04] LABS: ANION GAP 10 (5-19); BLOOD UREA NITROGEN 19 mg/dL (7-20); CALCIUM 8.7 mg/dL (8.4-10.2); CARBON DIOXIDE 28 mmol/L (22-30); CHLORIDE 106 mmol/L (98-107); GLUCOSE 96 mg/dL (75-110); SODIUM 143.6 mmol/L (137-145)
[2017-12-16] MEDS ORDERED: GLUCAGON,HUMAN RECOMB 1 MG INJ SUBCUT PRN (08:15)
[2017-12-16] MEDS ORDERED: DEXTROSE 40% GEL 15 GM TUBE PO PRN ×2 (08:15)
[2017-12-16] MEDS ORDERED: DEXTROSE 50%-WATER 25 GM/50 ML DISP.SYRIN IV PRN ×2 (08:15)
[2017-12-16] MEDS: ENOXAPARIN SODIUM INJ 40 MG/0.4 ML DISP.SYRIN SUBCUT SCH (09:52)
[2017-12-16] MEDS: LISINOPRIL 10 MG TABLET PO SCH (09:58)
[2017-12-16] MEDS: LANSOPRAZOLE 30 MG TAB.RAP.DR PO SCH ×2 (09:58→21:43)
[2017-12-16] MEDS ORDERED: DIPHENHYDRAMINE HCL 50 MG/ML VIAL ONE (11:09)
[2017-12-16] MEDS ORDERED: FENTANYL CITRATE INJ/PF 100 MCG/2 ML AMPUL ONE (11:10)
[2017-12-16] MEDS ORDERED: NALOXONE HCL INJ/PF 0.4 MG/1 ML SDV ONE (11:10)
[2017-12-16] MEDS ORDERED: ONDANSETRON HCL INJ/PF 4 MG/2 ML SDV ONE (11:10)
[2017-12-16] MEDS ORDERED: FLUMAZENIL INJ 0.5 MG/5 ML VIAL ONE (11:11)
[2017-12-16] MEDS ORDERED: EPINEPHRINE INJ 1 MG/10 ML DISP.SYRIN ONE (11:11)
[2017-12-16] MEDS ORDERED: GLUCAGON,HUMAN RECOMB 1 MG INJ ONE (11:11)
[2017-12-16] MEDS: MIDAZOLAM 2 MG/2 ML INJ ONE ×2 (11:25→11:31)
--- NOTE | 2017-12-16 11:52 | Operative Report ---
Operative Report DATE OF SURGERY: 12/16/17 PREOPERATIVE DIAGNOSIS: Abdominal pain POSTOPERATIVE DIAGNOSIS: Gastritis, hiatal hernia OPERATION: Esophagogastroduodenoscopy with antral biopsies. SURGEON: JUDIE SÁNCHEZ ANESTHESIA: Moderate Sedation TISSUE REMOVED OR ALTERED: Antral biopsies COMPLICATIONS: None ESTIMATED BLOOD LOSS: Minimal INTRAOPERATIVE FINDINGS: Mild gastric erythema. But no ulcers and no masses. Moderate size hiatal hernia. PROCEDURE: Informed consent was obtained. Patient was brought to the endoscopy suite. IV sedation with Versed and fentanyl was administered. Endoscope was passed via the patient's mouth into the second portion of the duodenum. The duodenum appeared to be normal. The gastric mucosa appeared to be mildly erythematous. But no ulcerations and no masses were seen. There was white fluid in the stomach consistent with her recent ingestion of Mylanta which required a copious amounts of irrigation aspiration to obtain adequate visualization. No masses and no ulcerations were seen. Retroflexed view demonstrated a small to moderate size hiatal hernia. Antral biopsies were taken. Esophagus appeared normal with no ulcerations. Patient tolerated procedure well with no apparent complications. Assessment: Likely gastritis is the culprit for her abdominal complaint related with stress. Recommend proton pump inhibitor therapy at home. With Prevacid 30 mg p.o. daily. Please have patient follow-up at [facility] few days after discharge to follow-up on her biopsy results. She will also need to follow-up in [facility] to schedule her outpatient colonoscopy.
--- NOTE | 2017-12-16 13:46 | PDOC PROGRESS REPORT ---
Subjective Reason For Visit: CHEST PAIN Physical Exam Vital Signs: Temp Pulse Resp BP Pulse Ox 97.8 F 54 L 11 L 155/84 H 95 12/16/17 11:55 12/16/17 12:05 12/16/17 12:05 12/16/17 12:05 12/16/17 12:05 Intake & Output 12/15/17 12/16/17 12/17/17 06:59 06:59 06:59 Intake Total 905 350 Output Total 1350 1850 Balance -445 -1850 350 Weight 71.3 kg 71.6 kg Results Laboratory Results: 12/16/17 05:49 12/16/17 05:49 12/16/17 12/16/17 12/16/17 05:49 05:49 06:20 WBC 4.2 RBC 4.21 Hgb 12.2 Hct 36.2 MCV 86 MCH 29.0 MCHC 33.7 RDW 14.4 H Plt Count 172 Seg Neutrophils % 39.6 L Lymphocytes % 49.2 H Monocytes % 8.0 Eosinophils % 2.4 Basophils % 0.8 Absolute Neutrophils 1.7 Absolute Lymphocytes 2.1 Absolute Monocytes 0.3 Absolute Eosinophils 0.1 Absolute Basophils 0.0 Sodium 143.6 Potassium 4.0 Chloride 106 Carbon Dioxide 28 Anion Gap 10 BUN 19 Creatinine 0.98 Est GFR ( Amer) > 60 Est GFR (Non-Af Amer) > 60 Glucose 96 Calcium 8.7 Stool Occult Blood NEGATIVE 12/11/17 12/11/17 12/12/17 18:23 18:23 00:26 Creatine Kinase 60 48 CK-MB (CK-2) 0.23 Troponin I < 0.012 12/12/17 12/12/17 12/12/17 00:26 06:28 06:28 Creatine Kinase 43 CK-MB (CK-2) < 0.22 0.25 Troponin I < 0.012 < 0.012 Impressions: Abdomen Ultrasound 12/11/17 00:00 IMPRESSION: No acute findings identified. Chest X-Ray 12/11/17 12:57 IMPRESSION: NO ACUTE RADIOGRAPHIC FINDING IN THE CHEST. Abdomen/Pelvis CT 12/15/17 00:00 IMPRESSION: NO SIGNIFICANT OR ACUTE ABDOMINAL PROCESS. Assessment & Plan - Diagnosis (1) Epigastric pain Is this a current diagnosis for this admission?: Yes Plan: EGD demonstrated hiatal hernia gastritis with no ulcerations. I have discussed this finding with the patient. I have asked her to follow-up at [facility] in a week for the biopsy results. And also to follow-up for an outpatient colonoscopy. I have discussed with the patient lifestyle changes for her gastroesophageal reflux disease and management of her gastritis. Recommend sending her home on Prevacid daily. Avoid alcohol and NSAIDs.
--- NOTE | 2017-12-16 17:59 | PDOC PROGRESS REPORT ---
Subjective Progress Note for:: 12/16/17 Subjective:: No adverse events overnight. No new complaints. Vital signs been stable. She denies any epigastric pain at this time. She is n.p.o. awaiting her EGD. Reason For Visit: CHEST PAIN Physical Exam Vital Signs: Temp Pulse Resp BP Pulse Ox 98.3 F 56 L 13 128/67 H 98 12/16/17 15:09 12/16/17 15:09 12/16/17 15:09 12/16/17 15:09 12/16/17 15:09 Intake & Output 12/15/17 12/16/17 12/17/17 06:59 06:59 06:59 Intake Total 822 Output Total 1850 1300 Balance -1850 -478 Weight 71.6 kg General appearance: PRESENT: no acute distress, cooperative Respiratory exam: PRESENT: clear to auscultation danay, unlabored. ABSENT: accessory muscle use, rales, rhonchi, tachypnea, wheezes Cardiovascular exam: PRESENT: RRR. ABSENT: systolic murmur GI/Abdominal exam: PRESENT: normal bowel sounds, soft. ABSENT: guarding, rebound, tenderness Extremities exam: ABSENT: pedal edema Musculoskeletal exam: PRESENT: normal inspection. ABSENT: ambulatory, deformity Neurological exam: PRESENT: alert, awake, oriented to person, oriented to place , oriented to time Psychiatric exam: PRESENT: appropriate affect, normal mood Skin exam: PRESENT: dry, warm Results Laboratory Results: 12/16/17 05:49 12/16/17 05:49 12/16/17 12/16/17 12/16/17 05:49 05:49 06:20 WBC 4.2 RBC 4.21 Hgb 12.2 Hct 36.2 MCV 86 MCH 29.0 MCHC 33.7 RDW 14.4 H Plt Count 172 Seg Neutrophils % 39.6 L Lymphocytes % 49.2 H Monocytes % 8.0 Eosinophils % 2.4 Basophils % 0.8 Absolute Neutrophils 1.7 Absolute Lymphocytes 2.1 Absolute Monocytes 0.3 Absolute Eosinophils 0.1 Absolute Basophils 0.0 Sodium 143.6 Potassium 4.0 Chloride 106 Carbon Dioxide 28 Anion Gap 10 BUN 19 Creatinine 0.98 Est GFR ( Amer) > 60 Est GFR (Non-Af Amer) > 60 Glucose 96 Calcium 8.7 Stool Occult Blood NEGATIVE Impressions: Abdomen Ultrasound 12/11/17 00:00 IMPRESSION: No acute findings identified. Chest X-Ray 12/11/17 12:57 IMPRESSION: NO ACUTE RADIOGRAPHIC FINDING IN THE CHEST. Abdomen/Pelvis CT 12/15/17 00:00 IMPRESSION: NO SIGNIFICANT OR ACUTE ABDOMINAL PROCESS. Assessment & Plan - Diagnosis (1) Epigastric pain Is this a current diagnosis for this admission?: Yes Plan: EGD is planned for today. We will follow-up recommendations regarding the findings. If it is unremarkable, maybe we will discharge her home in the morning. (2) Chest pain Qualifiers: Chest pain type: unspecified Qualified Code(s): R07.9 - Chest pain, unspecified Is this a current diagnosis for this admission?: Yes Plan: Resolved stress test was negative. - Time Time Spent with patient: 15-24 minutes
[2017-12-17] MEDS: HYDROMORPHONE HCL INJ/PF 2 MG/ML AMPULE IV PRN ×3 (00:05→10:34)
[2017-12-17] MEDS: LISINOPRIL 10 MG TABLET PO SCH (10:34)
[2017-12-17] MEDS: LANSOPRAZOLE 30 MG TAB.RAP.DR PO SCH (10:34)
[2017-12-17] MEDS: ENOXAPARIN SODIUM INJ 40 MG/0.4 ML DISP.SYRIN SUBCUT SCH (10:35)
[2017-12-17 15:21] VITALS: BP 132/75
--- NOTE | 2017-12-17 19:18 | PDOC DISCHARGE SUMMARY ---
General - Admit/Disc Date/PCP Admission Date/Primary Care Provider: 12/15/17 14:23 Discharge Date: 12/17/17 - Discharge Diagnosis (1) Epigastric pain Is this a current diagnosis for this admission?: Yes Summary: No obvious source of epigastric pain was noted on a rather extensive workup. She continued to ask for IV narcotics, however. She was noted to have a very mild gastritis on her EGD and it was recommended that she be put on a once a day proton pump inhibitor for a few weeks. (2) Chest pain Is this a current diagnosis for this admission?: Yes Summary: Ruled out for acute IN. No other obvious source of chest pain was detected. - Additional Information Resuscitation Status: Full Code Discharge Diet: As Tolerated Discharge Activity: Activity As Tolerated, Balance Activity w/Rest, Slowly Increase Activity Prescriptions: Lansoprazole [Prevacid 30 mg Odt Tablet] 30 mg PO DAILY #30 tab.rap Lisinopril [Prinivil 10 mg Tablet] 10 mg PO DAILY #30 tablet Home Medications: Diphenhydramine HCl [Benadryl 25 mg Capsule] 25 mg PO DAILYP PRN 12/11/17 Lansoprazole [Prevacid 30 mg Odt Tablet] 30 mg PO DAILY #30 tab.rap 12/17/17 Lisinopril [Prinivil 10 mg Tablet] 10 mg PO DAILY #30 tablet 12/17/17 History of Present Illness History of Present Illness: RELL GREGORY is a 52 year old female who presented to the emergency room with chest pain and abdominal pain. Her past medical history significant for hypertension for which she has not been treated in quite some time. She states that for the past several months she has been having issues where she gets somewhat weak and dizzy. She knows that her blood pressure is up. She has no primary care provider because she does not have insurance and she has not been on any medications in september years. She also reports a several month history of abdominal issues. She said she frequently has epigastric pain that is worse after she eats greasy foods. She states that she also has nausea and at times sometimes vomits. She also has issues with her bowel movements and sometimes has constipation. Again this is been going on for several months. Today she presents to the emergency room after having 2 episodes of sharp stabbing change pain in the middle of her chest. It rated it radiated up towards her neck. She states that she was somewhat lightheaded and weak and that she felt as if she was going to pass out. She sat down and rested and the pain resolved. The pain recurred again and EMS was called. She had accelerated hypertension when they arrived. Her blood pressure was reportedly 170/101. She was given a nitroglycerin with relief of her pain. She was brought to the emergency room for further evaluation and treatment. She does have a strong family history of coronary artery disease. Hospital Course Hospital Course: She was ruled out for acute IN. Stress test was negative. She did complain of chest pain anymore while she was in the hospital. No obvious source of abdominal pain could be found, she had an EGD which showed a very mild gastritis. She will go on a once a day proton pump inhibitor for a few weeks. She was told to avoid various medications, foods, and other substances. These were all detailed in her discharge orders. Her labs and examination were reassuring and she was discharged in good condition. Physical Exam Vital Signs: Temp Pulse Resp BP Pulse Ox 98.6 F 59 L 18 132/75 H 98 12/17/17 15:16 12/17/17 15:16 12/17/17 15:16 12/17/17 15:16 12/17/17 15:16 Intake & Output 12/16/17 12/17/17 12/18/17 06:59 06:59 06:59 Intake Total 1272 Output Total 1850 1300 Balance -1850 -28 Weight 71.6 kg 72.4 kg General appearance: PRESENT: no acute distress Respiratory exam: PRESENT: clear to auscultation danay, unlabored. ABSENT: rales , rhonchi, wheezes Cardiovascular exam: PRESENT: RRR. ABSENT: systolic murmur GI/Abdominal exam: PRESENT: normal bowel sounds, soft. ABSENT: guarding, rebound, tenderness Extremities exam: ABSENT: clubbing, pedal edema Musculoskeletal exam: PRESENT: ambulatory, normal inspection. ABSENT: deformity Neurological exam: PRESENT: alert, awake, oriented to person, oriented to place , oriented to time Skin exam: PRESENT: dry, warm Results Laboratory Results: 12/16/17 05:49 12/16/17 05:49 Impressions: Abdomen Ultrasound 12/11/17 00:00 IMPRESSION: No acute findings identified. Chest X-Ray 12/11/17 12:57 IMPRESSION: NO ACUTE RADIOGRAPHIC FINDING IN THE CHEST. Abdomen/Pelvis CT 12/15/17 00:00 IMPRESSION: NO SIGNIFICANT OR ACUTE ABDOMINAL PROCESS. Qualifiers - * PATIENT BEING DISCHARGED WITH ANY OF THE FOLLOWING DIAGNOSIS: No
== END 2017-12-17 16:05 | disposition home or self-care (01) | DRG 392 ==
LOC: ER 12:55 → EH 15:19 → 4S 17:49 → OBSVTOIN 12-15 14:23
PROVIDERS: ADMIT Internal Medicine; ATTEND Internal Medicine
PROC: 0DB68ZX Excision of Stomach, Via Natural or Artificial Opening Endoscopic, Diagnostic (ICD-10-PCS; principal; 2017-12-16 11:07)
DX: K29.70 Gastritis, unspecified, without bleeding (principal); I16.0 Hypertensive urgency; I10 Essential (primary) hypertension; G43.909 Migraine, unspecified, not intractable, without status migrainosus; K21.9 Gastro-esophageal reflux disease without esophagitis; F32.9 Major depressive disorder, single episode, unspecified; F17.210 Nicotine dependence, cigarettes, uncomplicated; E87.6 Hypokalemia; K44.9 Diaphragmatic hernia without obstruction or gangrene; R73.9 Hyperglycemia, unspecified; Z83.3 Family history of diabetes mellitus; Z80.9 Family history of malignant neoplasm, unspecified; Z82.49 Family history of ischemic heart disease and other diseases of the circulatory system; Z88.8 Allergy status to other drugs, medicaments and biological substances; Z88.6 Allergy status to analgesic agent; Z88.4 Allergy status to anesthetic agent; Z91.013 Allergy to seafood; Z63.4 Disappearance and death of family member; Z63.6 Dependent relative needing care at home
CPT/HCPCS: 36415; 43239; 71045; 74176; 76700; 78452; 80048; 80053; 80061; 81001; 82272; 82550; 82553; 83036; 83735; 84100; 84443; 84484; 85025; 85027; 88305; 88342; 93005; 93010; 93017; 99285; A9500; G0378; J0171; J1170; J1200; J1610; J1650; J2250; J2270; J2310; J2405; J2785; J3010; J3490; Q9969

== ENCOUNTER 2019-12-15 11:30 | Emergency (ER) | payer SELFPAY ==
--- NOTE | 2019-12-15 11:51 | ER Document Report ---
ED Medical Screen (RME) - General Chief Complaint: Weakness Stated Complaint: WEAKNESS Mode of Arrival: Ambulatory Information source: Patient Notes: Patient presents complaining of upper abdominal pain and rectal bleeding that started yesterday. Patient states she was walking today and her heart started beating fast and she felt dizzy. Patient reports some mild shortness of breath. Patient states she does have a history of gastric ulcer, hypertension, diabetes and depression. I have greeted and performed a rapid initial assessment of this patient. A comprehensive ED assessment and evaluation of the patient, analysis of test results and completion of the medical decision making process will be conducted by additional ED providers. TRAVEL OUTSIDE OF THE [place] IN LAST 30 DAYS: No - Related Data Allergies/Adverse Reactions: Iodine and Iodide Containing Produc Allergy (Intermediate, Verified 12/15/19 11:47) itching hydrocodone bitartrate [From Vicodin] Allergy (Verified 12/15/19 11:47) lidocaine [Lidocaine] Allergy (Verified 12/15/19 11:47) propoxyphene napsylate [From Darvocet-N 100] Allergy (Verified 12/15/19 11:47) shellfish derived Allergy (Verified 12/15/19 11:47) itching Past Medical History - Social History Family history: DM, Hypertension, Malignancy - Past Medical History Cardiac Medical History: Reports: Hx Hypertension Denies: Hx Congestive Heart Failure, Hx Heart Attack Pulmonary Medical History: Denies: Hx Asthma, Hx Bronchitis, Hx COPD, Hx Pneumonia, Hx Tuberculosis Neurological Medical History: Reports: Hx Migraine. Denies: Hx Seizures, Hx P arkinson's Disease Renal/ Medical History: Reports: Hx Kidney Stones. Denies: Hx End Stage Renal Disease, Hx Peritoneal Dialysis GI Medical History: Reports: Hx Gastroesophageal Reflux Disease, Hx Ulcer. Denies: Hx Cirrhosis Musculoskeltal Medical History: Denies Hx Arthritis, Denies Hx Multiple Sclerosis, Reports Hx Musculoskeletal Trauma Psychiatric Medical History: Reports: Hx Depression Denies: Hx Bipolar Disorder, Hx Schizophrenia Past Surgical History: Reports: Hx Abdominal Surgery - hernia, Hx Breast Surgery - L biopsy, Hx Inguinal Hernia, Hx Tubal Ligation. Denies: Hx Hysterectomy - Immunizations Immunizations up to date: Yes Hx Diphtheria, Pertussis, Tetanus Vaccination: Yes Physical Exam - Vital signs Vitals: Temp Pulse Resp BP Pulse Ox 98.2 F 78 20 160/92 H 99 12/15/19 11:36 12/15/19 11:36 12/15/19 11:36 12/15/19 11:36 12/15/19 11:36 - Cardiovascular Rhythm: Regular. No: Tachycardia Heart sounds: S1 appreciated, S2 appreciated - Abdominal Tenderness: Tender - Upper abdominal tenderness, exam limited due to patient sitting in chair Course - Vital Signs Vital signs: Temp Pulse Resp BP Pulse Ox 98.2 F 78 20 160/92 H 99 12/15/19 11:36 12/15/19 11:36 12/15/19 11:36 12/15/19 11:36 12/15/19 11:36
--- NOTE | 2019-12-15 12:29 | RADIOLOGY REPORT (SQ) ---
EXAM DESCRIPTION: CHEST SINGLE VIEW IMAGES COMPLETED DATE/TIME: 12/15/2019 11:06 am REASON FOR STUDY: upper abd pain, dizzy COMPARISON: Radiograph, 12/11/2017 EXAM PARAMETERS: NUMBER OF VIEWS: One view. TECHNIQUE: Single frontal radiographic view of the chest acquired. RADIATION DOSE: NA LIMITATIONS: None. FINDINGS: LUNGS AND PLEURA: No opacities, masses or pneumothorax. No pleural effusion. MEDIASTINUM AND HILAR STRUCTURES: No masses. Contour normal. HEART AND VASCULAR STRUCTURES: Heart normal in size. Normal vasculature. BONES: No acute findings. HARDWARE: None in the chest. OTHER: No other significant finding. IMPRESSION: NO ACUTE RADIOGRAPHIC FINDING IN THE CHEST. TECHNICAL DOCUMENTATION: JOB ID: [id number] 2010 [employer]- All Rights Reserved Reading location - IP/workstation name: [email or web address]
[2019-12-15 12:46] LABS: ABSOLUTE MONOCYTES (AUTO) 0.4 10^3/uL (0.1-1.4); EOSINOPHILS % (AUTO) 3.3 % (0-6); TOTAL CELLS COUNTED % (AUTO) 100 %
[2019-12-15 12:49] LABS: ALBUMIN 4.1 g/dL (3.5-5.0); ALKALINE PHOSPHATASE 107 U/L (38-126); ANION GAP 8 (5-19); ASPARTATE AMINO TRANSFERASE 56 U/L (14-36); BILIRUBIN,DIRECT 0.1 mg/dL (0.0-0.4); BILIRUBIN,TOTAL 0.4 mg/dL (0.2-1.3); BLOOD UREA NITROGEN 9 mg/dL (7-20); CALCIUM 9.1 mg/dL (8.4-10.2); CARBON DIOXIDE 28 mmol/L (22-30); CHLORIDE 103 mmol/L (98-107); POTASSIUM 3.8 mmol/L (3.6-5.0); TOTAL PROTEIN 7.8 g/dL (6.3-8.2)
[2019-12-15 12:51] LABS: INTERNATIONAL RATION (INR) 0.97; PROTHROMBIN TIME 12.9 SEC (11.4-15.4)
[2019-12-15 12:52] LABS: PARTIAL THROMBOPLASTIN TIME 30.2 SEC (23.5-35.8)
[2019-12-15 12:54] LABS: GLUCOSE 69 mg/dL (75-110)
[2019-12-15 12:57] LABS: HEMOGLOBIN 14.3 g/dL (12.0-15.5); LYMPHOCYTES % (AUTO) 42.5 % (13-45); MEAN CORPUSCULAR HEMOGLOBIN 28.8 pg (27.0-33.4); MEAN CORPUSCULAR HGB CONC 33.4 g/dL (32.0-36.0); MEAN CORPUSCULAR VOLUME 86 fl (80-97); MONOCYTES % (AUTO) 8.3 % (3-13); PLATELET COUNT 211 10^3/uL (150-450); RED BLOOD COUNT 4.98 10^6/uL (3.72-5.28); RED CELL DISTRIBUTION WIDTH 14.5 % (11.5-14.0); SEGMENTED NEUTROPHILS % (AUTO) 45.2 % (42-78); WHITE BLOOD COUNT 4.5 10^3/uL (4.0-10.5)
[2019-12-15 12:58] LABS: ABSOLUTE EOSINOPHILS # (AUTO) 0.1 10^3/uL (0.0-0.6); ABSOLUTE LYMPHOCYTES (AUTO) 1.9 10^3/uL (0.5-4.7); BASOPHILS % (AUTO) 0.7 % (0-2)
--- NOTE | 2019-12-15 18:03 | RADIOLOGY REPORT (SQ) ---
EXAM DESCRIPTION: CT ABD/PELVIS NO ORAL OR IV IMAGES COMPLETED DATE/TIME: 12/15/2019 5:46 pm REASON FOR STUDY: epigastric pain COMPARISON: 12/15/2017 TECHNIQUE: CT scan of the abdomen and pelvis performed without intravenous or oral contrast. Images reviewed with lung, soft tissue, and bone windows. Reconstructed coronal and sagittal MPR images revi ewed. All images stored on PACS. All CT scanners at this facility use dose modulation, iterative reconstruction, and/or weight based d osing when appropriate to reduce radiation dose to as low as reasonably achievable (ALARA). [facility]: Dose Right [facility]: CareDose [facility]: Dose Right [facility]: Teradose 4D [facility]: Smart [employer] RADIATION DOSE: CT Rad equipment meets quality standard of care and radiation dose reduction techniq ues were employed. CTDIvol: 10.0 mGy. DLP: 541 mGy-cm.mGy. LIMITATIONS: None. FINDINGS: LOWER CHEST: No significant findings. No nodules or infiltrates. NON-CONTRASTED LIVER, SPLEEN, ADRENALS: Evaluation limited by lack of IV contrast. No identified sign ificant masses. PANCREAS: No masses. No peripancreatic inflammatory changes. GALLBLADDER: No identified stones by CT criteria. No inflammatory changes to suggest cholecystitis. RIGHT KIDNEY AND URETER: No suspicious masses. Assessment limited by lack of IV contrast. No signif icant calcifications. No hydronephrosis or hydroureter. LEFT KIDNEY AND URETER: No suspicious masses. Assessment limited by lack of IV contrast. No signifi cant calcifications. No hydronephrosis or hydroureter. AORTA AND RETROPERITONEUM: No aneurysm. No retroperitoneal masses or adenopathy. BOWEL AND PERITONEAL CAVITY: No obvious masses or inflammatory changes. No free fluid. APPENDIX: Normal. PELVIS, BLADDER, AND ABDOMINAL WALL:No abnormal masses. No free fluid. Bladder normal. BONES: No significant findings. OTHER: No other significant finding. IMPRESSION: NO SIGNIFICANT OR ACUTE PROCESS IN THE ABDOMEN OR PELVIS. COMMENT: Quality ID # [id number]: Final reports with documentation of one or more dose reduction techniques (e.g., Automated exposure control, adjustment of the mA and/or kV according to patient size, use of iterative reconstruction technique) TECHNICAL DOCUMENTATION: JOB ID: [id number] 2010 [employer]- All Rights Reserved Reading location - IP/workstation name: [email or web address]
[2019-12-15] MEDS ORDERED: NORMAL SALINE 1000 ML 1,000 ML IV ONE (18:06)
[2019-12-15] MEDS ORDERED: MAG HYDROX/AL HYDROX/SIMETH SUSP 30 ML UDCUP PO ONE (18:13)
[2019-12-15] MEDS ORDERED: DIPHENHYDRAMINE HCL 25 MG CAPSULE PO ONE (18:13)
[2019-12-15] MEDS ORDERED: METOCLOPRAMIDE HCL ORAL SOLN 10 MG/10 ML UDCUP PO ONE (18:13)
--- NOTE | 2019-12-15 19:07 | ER Document Report ---
ED Dizziness/Weakness - General Mode of Arrival: Ambulatory TRAVEL OUTSIDE OF THE [place] IN LAST 30 DAYS: No <JOE PAUL - Last Filed: 12/15/19 20:04> <GIOVANNY STROUD - Last Filed: 12/15/19 21:03> - General Chief Complaint: Rectal Bleeding Stated Complaint: WEAKNESS Time Seen by Provider: 12/15/19 16:55 Primary Care Provider: [facility] [Provider Group] - Follow up as needed Notes: 54-year-old female with past medical history of PUD, hypertension presenting with epigastric pain and rectal bleeding x2 days. States that her epigastric pain has been intermittent for about a year. She does not take any medication for this. Also states she was at the store around 930 today when she began to feel lightheaded and dizzy. She feels like this was due to the heat. States that she feels better at this time. She denies any headaches, fevers, chills, shortness of breath or chest pain. Denies any urinary complaints. (JOE PAUL) - Related Data Allergies/Adverse Reactions: Iodine and Iodide Containing Produc Allergy (Intermediate, Verified 12/15/19 11:47) itching hydrocodone bitartrate [From Vicodin] Allergy (Verified 12/15/19 11:47) lidocaine [Lidocaine] Allergy (Verified 12/15/19 11:47) propoxyphene napsylate [From Darvocet-N 100] Allergy (Verified 12/15/19 11:47) shellfish derived Allergy (Verified 12/15/19 11:47) itching Past Medical History - General Information source: Patient - Social History Smoking Status: Never Smoker Chew tobacco use (# tins/day): No Frequency of alcohol use: None Drug Abuse: None Family History: Reviewed & Not Pertinent, DM, Hypertension, Malignancy Patient has homicidal ideation: No - Past Medical History Cardiac Medical History: Reports: Hx Hypertension Denies: Hx Congestive Heart Failure, Hx Heart Attack Pulmonary Medical History: Denies: Hx Asthma, Hx Bronchitis, Hx COPD, Hx Pneumonia, Hx Tuberculosis Neurological Medical History: Reports: Hx Migraine. Denies: Hx Seizures, Hx Parkinson's Disease Renal/ Medical History: Reports: Hx Kidney Stones. Denies: Hx End Stage Renal Disease, Hx Peritoneal Dialysis GI Medical History: Reports: Hx Gastroesophageal Reflux Disease, Hx Ulcer. Denies: Hx Cirrhosis Musculoskeletal Medical History: Denies Hx Arthritis, Denies Hx Multiple Sclero sis, Reports Hx Musculoskeletal Trauma Psychiatric Medical History: Reports: Hx Depression Denies: Hx Bipolar Disorder, Hx Schizophrenia Past Surgical History: Reports: Hx Abdominal Surgery - hernia, Hx Breast Surgery - L biopsy, Hx Inguinal Hernia, Hx Tubal Ligation. Denies: Hx Hysterectomy - Immunizations Immunizations up to date: Yes Hx Diphtheria, Pertussis, Tetanus Vaccination: Yes <JOE PAUL - Last Filed: 12/15/19 20:04> Physical Exam - Vital signs Vitals: Temp Pulse Resp BP Pulse Ox 98.2 F 78 20 160/92 H 99 12/15/19 11:36 12/15/19 11:36 12/15/19 11:36 12/15/19 11:36 12/15/19 11:36 Course - Laboratory Result Diagrams: 12/15/19 11:40 12/15/19 11:40 <JOE PAUL - Last Filed: 12/15/19 20:04> - Laboratory Result Diagrams: 12/15/19 11:40 12/15/19 11:40 <GIOVANNY STROUD - Last Filed: 12/15/19 21:03> - Re-evaluation Re-evalutation: 12/15/19 20:04 Patient was given a GI cocktail. She states she is still in pain. I ordered her Carafate. As she was dizzy and tachycardic, IV fluids were ordered. Pending response to carafate. Her CT scan shows no significant abdominal process. CXR ordered by triage provider shows no acute findings. Her EKG shows normal sinus with no st segment elevations or depressions. Hemoccult was negative. Labs are unremarkable. Her abdominal pain is likely due to peptic ulcer. She had no real improvement with the gi cocktail provided. Carafate was ordered. Pending her response to this. Patient denies use of nsaids. Denies dizziness at this time. I discussed with patient that I recommend she follows up with a GI doctor for her pain. Patient was turned over to Giovanny Stroud who will monitor response to carafate. 12/15/19 20:10 (JOE PAUL) Had a long conversation with patient. She states that she had the of her mother and the of her sister along with her daughter becoming unhealthy, she states that she became depressed, stopped keeping up with her medications, has not seen a provider recently, stopped taking care of herself. She states now she is more motivated, she states she is doing better but she still wants referral to psychiatry, she is not suicidal. She states she would like a refill of her Diovan along with treatment for peptic ulcer disease, she states she will follow-up with primary care referral. I did review work-up including unremarkable CBC, chemistry, lipase, delta troponin, chest x-ray, CAT scan, and negative Hemoccult. Based on this and her vital signs along with her benign evaluation I have low suspicion of acute emergent abnormality. Patient discharged with return precautions which were discussed in detail. Patient states appreciation and agreement. (GIOVANNY STROUD) - Vital Signs Vital signs: Temp Pulse Resp BP Pulse Ox 98.7 F 78 20 160/92 H 99 12/15/19 11:47 12/15/19 11:36 12/15/19 11:36 12/15/19 11:36 12/15/19 11:36 - Laboratory Laboratory results interpreted by me: 12/15/19 12/15/19 12/15/19 11:40 11:40 19:43 RDW 14.5 H Glucose 69 L AST 56 H ALT 48 H Ur Leukocyte Esterase TRACE H - EKG Interpretation by Me Additional EKG results interpreted by me: 12/15/19 20:07 sinus rhythm at 80, LA interval of 92, qtc of 425. No sg segment elevations or depressions. (JOE PAUL) Discharge <JOE PAUL - Last Filed: 12/15/19 20:04> <GIOVANNY STROUD - Last Filed: 12/15/19 21:03> - Discharge Clinical Impression: Dizziness, Epigastric pain Condition: Stable Disposition: HOME, SELF-CARE Additional Instructions: Your work-up in regards to your heart, lungs, and general state did not show any concerning findings today. Please take the Carafate for the next several days, take the omeprazole daily as prescribed to treat your inflammation of the upper gastrointestinal tract. Avoid caffeine, spicy food, alcohol, smoking, NSAIDs as you are healing. Pepcid over the counter can also help. Start with bland food and slowly progress. You have been prescribed your blood pressure medication as well. Please follow- up with primary care referral for additional management of both your blood pressure and your peptic ulcer disease. Also see the mental health referral ([facility]) for additional assistance in your grieving process. Return for any concerning symptoms including vomiting, vomiting blood, black stools, severe abdominal pain, passing out, or any other concerning or worsening symptoms. Prescriptions: Sucralfate [Carafate 1 gm Tablet] 1 gm PO QID #20 tablet Omeprazole 40 mg PO DAILY #30 capsule.dr Nguyenrtbutch 80 mg PO DAILY #30 tablet Referrals: [facility] [Provider Group] - Follow up in 1 week
[2019-12-15] MEDS ORDERED: SUCRALFATE 1 GM TABLET PO ONE (19:55)
[2019-12-15 20:07] LABS: APPEARANCE,URINE CLEAR; BILIRUBIN,URINE NEGATIVE (NEGATIVE); COLOR,URINE YELLOW; GLUCOSE, URINE NEGATIVE (NEGATIVE); KETONES,URINE NEGATIVE (NEGATIVE); LEUKOCYTE ESTERASE,URINE TRACE (NEGATIVE); NITRITE,URINE NEGATIVE (NEGATIVE); PROTEIN,URINE NEGATIVE (NEGATIVE); URINE SPECIFIC GRAVITY 1.018; UROBILINOGEN,URINE NEGATIVE mg/dL (<2.0)
[2019-12-15] MEDS ORDERED: VALSARTAN 80 MG TABLET PO ONE (21:52)
[2019-12-15 21:53] VITALS: BP 184/105
--- NOTE | 2019-12-16 09:31 | EKG REPORT ---
SEVERITY:- NORMAL ECG - SINUS RHYTHM : Confirmed by: Izabela Diggs 16-Dec-2019 09:30:33
== END 2019-12-15 21:57 | disposition home or self-care (01) ==
LOC: ER 11:30
DX: K27.4 Chronic or unspecified peptic ulcer, site unspecified, with hemorrhage (principal); R10.13 Epigastric pain; R42 Dizziness and giddiness; R00.0 Tachycardia, unspecified; I10 Essential (primary) hypertension; Z87.11 Personal history of peptic ulcer disease; Z63.4 Disappearance and death of family member; Z88.6 Allergy status to analgesic agent; Z88.5 Allergy status to narcotic agent; Z88.4 Allergy status to anesthetic agent; Z91.013 Allergy to seafood
CPT/HCPCS: 93005; 99284; 96360; 36415; 87086; 82962; 83690; 83735; 84443; 85025; 85610; 85730; 82270; 80053; 81001; 84484; 71045; 74176; 93010; J7030; J3490

== ENCOUNTER 2019-12-19 12:45 | Emergency (ER) | payer SELFPAY ==
--- NOTE | 2019-12-19 13:14 | ER Document Report ---
ED Medical Screen (RME) - General Chief Complaint: Heat Exposure Stated Complaint: LEFT ANKLE PAIN/HEAT EXPOSURE Time Seen by Provider: 12/19/19 13:11 Mode of Arrival: Medic Information source: Patient Notes: 54-year-old female presented to ED after a syncopal episode when she was out in the heat. She is a homeless patient. She states after she passed out when she woke up she went to try to walk to call EMS and she fell injuring her left ankle. She states EMS brought her to the emergency room and Accu-Chek was normal and there ambulates. She states she has done this in the past and fell again today. I have greeted and performed a rapid initial assessment of this patient. A comprehensive ED assessment and evaluation of the patient, analysis of test results and completion of medical decision making process will be conducted by an additional ED providers. TRAVEL OUTSIDE OF THE [place] IN LAST 30 DAYS: No - Related Data Allergies/Adverse Reactions: Iodine and Iodide Containing Produc Allergy (Intermediate, Verified 12/19/19 13:12) itching hydrocodone bitartrate [From Vicodin] Allergy (Verified 12/19/19 13:12) lidocaine [Lidocaine] Allergy (Verified 12/19/19 13:12) propoxyphene napsylate [From Darvocet-N 100] Allergy (Verified 12/19/19 13:12) shellfish derived Allergy (Verified 12/19/19 13:12) itching Past Medical History - Social History Family history: DM, Hypertension, Malignancy - Past Medical History Cardiac Medical History: Reports: Hx Hypertension Denies: Hx Congestive Heart Failure, Hx Heart Attack Pulmonary Medical History: Denies: Hx Asthma, Hx Bronchitis, Hx COPD, Hx Pneumonia, Hx Tuberculosis Neurological Medical History: Reports: Hx Migraine. Denies: Hx Seizures, Hx Parkinson's Disease Renal/ Medical History: Reports: Hx Kidney Stones. Denies: Hx End Stage Renal Disease, Hx Peritoneal Dialysis GI Medical History: Reports: Hx Gastroesophageal Reflux Disease, Hx Ulcer. Denies: Hx Cirrhosis Musculoskeltal Medical History: Denies Hx Arthritis, Denies Hx Multiple Sclerosis, Reports Hx Musculoskeletal Trauma Psychiatric Medical History: Reports: Hx Depression Denies: Hx Bipolar Disorder, Hx Schizophrenia Past Surgical History: Reports: Hx Abdominal Surgery - hernia, Hx Breast Surgery - L biopsy, Hx Inguinal Hernia, Hx Tubal Ligation. Denies: Hx Hysterectomy - Immunizations Immunizations up to date: Yes Hx Diphtheria, Pertussis, Tetanus Vaccination: Yes
[2019-12-19 13:52] VITALS: BP 154/114
--- NOTE | 2019-12-19 13:53 | RADIOLOGY REPORT (SQ) ---
EXAM DESCRIPTION: CHEST 2 VIEWS IMAGES COMPLETED DATE/TIME: 12/19/2019 12:40 pm REASON FOR STUDY: syncope COMPARISON: 12/15/2019 EXAM PARAMETERS: NUMBER OF VIEWS: two views TECHNIQUE: Digital Frontal and Lateral radiographic views of the chest acquired. RADIATION DOSE: NA LIMITATIONS: none FINDINGS: LUNGS AND PLEURA: No opacities, masses or pneumothorax. No pleural effusion. MEDIASTINUM AND HILAR STRUCTURES: No masses or contour abnormalities. HEART AND VASCULAR STRUCTURES: Heart normal size. No evidence for failure. BONES: No acute findings. HARDWARE: None in the chest. OTHER: No other significant finding. IMPRESSION: NO ACUTE RADIOGRAPHIC FINDING IN THE CHEST. TECHNICAL DOCUMENTATION: JOB ID: [id number] 2010 [employer]- All Rights Reserved Reading location - IP/workstation name: [id number]
--- NOTE | 2019-12-19 14:08 | RADIOLOGY REPORT (SQ) ---
EXAM DESCRIPTION: ANKLE LEFT COMPLETE IMAGES COMPLETED DATE/TIME: 12/19/2019 12:40 pm REASON FOR STUDY: fall injury. Stepped in a hole. Lateral pain. COMPARISON: None. NUMBER OF VIEWS: Three views. TECHNIQUE: AP, lateral, and oblique radiographic images acquired of the left ankle. LIMITATIONS: None. FINDINGS: MINERALIZATION: Normal. BONES: No acute fracture or dislocation. No worrisome bone lesions. Small plantar calcaneal spur. JOINTS: No effusions. SOFT TISSUES: No soft tissue swelling. No foreign body. OTHER: No other significant finding. IMPRESSION: No acute fracture or dislocation of the left ankle. Small plantar calcaneal spur which can be seen with plantar fasciitis. TECHNICAL DOCUMENTATION: JOB ID: [id number] 2010 [employer]- All Rights Reserved Reading location - IP/workstation name: [email or web address]
[2019-12-19 14:28] LABS: ABSOLUTE BASOPHILS # (AUTO) 0.1 10^3/uL (0.0-0.2); ABSOLUTE LYMPHOCYTES (AUTO) 1.7 10^3/uL (0.5-4.7); ABSOLUTE MONOCYTES (AUTO) 0.3 10^3/uL (0.1-1.4); ABSOLUTE NEUT (AUTO) 3.1 10^3/uL (1.7-8.2); BASOPHILS % (AUTO) 1.1 % (0-2); EOSINOPHILS % (AUTO) 0.4 % (0-6); HEMATOCRIT 45.5 % (36.0-47.0); HEMOGLOBIN 15.4 g/dL (12.0-15.5); LYMPHOCYTES % (AUTO) 31.9 % (13-45); MEAN CORPUSCULAR HEMOGLOBIN 28.9 pg (27.0-33.4); MEAN CORPUSCULAR HGB CONC 33.8 g/dL (32.0-36.0); MEAN CORPUSCULAR VOLUME 86 fl (80-97); MONOCYTES % (AUTO) 6.6 % (3-13); PLATELET COUNT 251 10^3/uL (150-450); RED BLOOD COUNT 5.31 10^6/uL (3.72-5.28); RED CELL DISTRIBUTION WIDTH 14.4 % (11.5-14.0); TOTAL CELLS COUNTED % (AUTO) 100 %; WHITE BLOOD COUNT 5.2 10^3/uL (4.0-10.5)
[2019-12-19 14:31] LABS: APPEARANCE,URINE SLIGHTLY-CLOUDY; BILIRUBIN,URINE MODERATE (NEGATIVE); COLOR,URINE AMBER; GLUCOSE, URINE NEGATIVE (NEGATIVE); KETONES,URINE TRACE mg/dL (NEGATIVE); LEUKOCYTE ESTERASE,URINE NEGATIVE (NEGATIVE); NITRITE,URINE NEGATIVE (NEGATIVE); PROTEIN,URINE 100 mg/dL (NEGATIVE); URINE SPECIFIC GRAVITY 1.033
[2019-12-19 14:45] LABS: ALBUMIN 4.7 g/dL (3.5-5.0); ALKALINE PHOSPHATASE 107 U/L (38-126); ANION GAP 10 (5-19); ASPARTATE AMINO TRANSFERASE 63 U/L (14-36); BILIRUBIN,DIRECT 0.3 mg/dL (0.0-0.4); BILIRUBIN,TOTAL 0.8 mg/dL (0.2-1.3); BLOOD UREA NITROGEN 12 mg/dL (7-20); CALCIUM 9.9 mg/dL (8.4-10.2); CARBON DIOXIDE 30 mmol/L (22-30); CHLORIDE 101 mmol/L (98-107); CREATINE KINASE 51 U/L (30-135); GLUCOSE 101 mg/dL (75-110); POTASSIUM 3.9 mmol/L (3.6-5.0)
[2019-12-19 14:57] LABS: CREATINE KINASE MB < 0.22 ng/mL (<4.55); TROPONIN I < 0.012 ng/mL
[2019-12-19] MEDS ORDERED: CLONIDINE HCL 0.2 MG TABLET PO ONE (15:36)
[2019-12-19] MEDS ORDERED: ACETAMINOPHEN 325 MG TABLET PO ONE (15:41)
--- NOTE | 2019-12-19 15:45 | ER Document Report ---
Entered by JONG DYE SCRIBE 12/19/19 1432 Acting as scribe for:GRACIE JJ MD ED General - General Chief Complaint: Fainting Stated Complaint: LEFT ANKLE PAIN/HEAT EXPOSURE Time Seen by Provider: 12/19/19 13:11 Mode of Arrival: Medic Information source: Patient Notes: This 54 year old female patient presents to the emergency department today with complaints of dizziness. Patient states she visited the ED x4 days ago for dizziness and was prescribed Diovan for her HTN, which she has not picked up yet. Patient states her mother recently passed, she is homeless, and has been outside more. Patient states the dizziness is most likely from being in the sun and reports some lightheadedness. Patient reports x1 syncopal episode and states she sees "dark spots" during her dizzy spells. Patient states she stepped in a hole while walking and reports some left ankle pain. Patient states she is only taking Benadryl for allergies and has not taken the prescribed Diovan. TRAVEL OUTSIDE OF THE [place] IN LAST 30 DAYS: No - Related Data Allergies/Adverse Reactions: Iodine and Iodide Containing Produc Allergy (Intermediate, Verified 12/19/19 13:12) itching hydrocodone bitartrate [From Vicodin] Allergy (Verified 12/19/19 13:12) lidocaine [Lidocaine] Allergy (Verified 12/19/19 13:12) propoxyphene napsylate [From Darvocet-N 100] Allergy (Verified 12/19/19 13:12) shellfish derived Allergy (Verified 12/19/19 13:12) itching Past Medical History - General Information source: Patient - Social History Smoking Status: Never Smoker Cigarette use (# per day): No Lives with: Homeless Family History: Reviewed & Not Pertinent, DM, Hypertension, Malignancy Patient has homicidal ideation: No - Past Medical History Cardiac Medical History: Reports: Hx Hypertension Neurological Medical History: Reports: Hx Migraine Renal/ Medical History: Reports: Hx Kidney Stones GI Medical History: Reports: Hx Gastroesophageal Reflux Disease, Hx Ulcer Musculoskeletal Medical History: Reports Hx Musculoskeletal Trauma Psychiatric Medical History: Reports: Hx Depression Past Surgical History: Reports: Hx Abdominal Surgery - hernia, Hx Breast Surgery - L biopsy, Hx Inguinal Hernia, Hx Tubal Ligation - Immunizations Immunizations up to date: Yes Hx Diphtheria, Pertussis, Tetanus Vaccination: Yes Review of Systems - Review of Systems Constitutional: No symptoms reported EENT: See HPI Cardiovascular: See HPI, Syncope - x1, Dizziness, Lightheaded Respiratory: No symptoms reported Gastrointestinal: No symptoms reported Genitourinary: No symptoms reported Female Genitourinary: No symptoms reported Musculoskeletal: See HPI, Other - L ankle pain Skin: No symptoms reported Hematologic/Lymphatic: No symptoms reported Neurological/Psychological: No symptoms reported -: Yes All other systems reviewed and negative Physical Exam - Vital signs Vitals: Temp Pulse Resp BP Pulse Ox 98.2 F 102 H 16 154/114 H 99 12/19/19 13:20 12/19/19 13:20 12/19/19 13:20 12/19/19 13:20 12/19/19 13:20 - General General appearance: Appears well, Alert - HEENT Head: Normocephalic, Atraumatic Eyes: Normal Pupils: PERRL Ears: Normal External canal: Cerumen impaction - bilateral Pharynx: Normal Notes: No tenderness with palpation to the frontal or maxillary sinus. - Respiratory Respiratory status: No respiratory distress Chest status: Nontender Breath sounds: Normal Chest palpation: Normal - Cardiovascular Rhythm: Regular Heart sounds: Normal auscultation Murmur: No - Abdominal Inspection: Obese Distension: No distension Bowel sounds: Normal Tenderness: Nontender - Extremities General upper extremity: Normal inspection. No: Edema General lower extremity: Normal inspection, Normal strength, Normal temperature. No: Edema - Neurological Neuro grossly intact: Yes Cognition: Normal Orientation: AAOx4 Speech: Normal - Psychological Associated symptoms: Normal affect, Normal mood - Skin Skin Temperature: Warm Skin Moisture: Dry Skin Color: Normal Course - Re-evaluation Re-evalutation: 12/19/19 15:37 Patient reports that she is noncompliant on taking medications because she does not have money to purchase her prescriptions for omeprazole and her blood pressure medicine. Patient is homeless and states that she currently has no location the left. She has no job at this time either. Patient was in this emergency room just a few days ago with the similar complaint. , And was prescribed medications needed to control her blood pressure and her acid reflux problems. - Vital Signs Vital signs: Temp Pulse Resp BP Pulse Ox 98.2 F 102 H 16 154/114 H 99 12/19/19 13:20 12/19/19 13:20 12/19/19 13:20 12/19/19 13:20 12/19/19 13:20 12/19/19 15:38 Vital signs as above. Patient has systolic diastolic hypertension at 154/114. I have ordered clonidine 0.2 mg for patient to help lower her blood pressure. Patient has prescriptions for blood pressure but so far has not purchase her medications. - Laboratory Result Diagrams: 12/19/19 13:57 12/19/19 13:57 Laboratory results interpreted by me: 12/19/19 12/19/19 12/19/19 13:57 13:57 13:57 RBC 5.31 H RDW 14.4 H Est GFR (MDRD) Non-Af 56 L AST 63 H ALT 53 H Total Protein 9.0 H Urine Protein 100 H Urine Ketones TRACE H Urine Bilirubin MODERATE H Urine Urobilinogen 4.0 H - Diagnostic Test Radiology reviewed: Image reviewed, Reports reviewed Radiology results interpreted by me: 12/19/19 15:38 Chest x-ray no acute process Left ankle x-ray shows no acute process incidental is a calcaneal spur noted on the plantar surface. Discharge - Discharge Clinical Impression: Hypertension, Ankle sprain Condition: Good Disposition: HOME, SELF-CARE Instructions: Ice Packs ([facility]), Sprained Ankle ([facility]) Additional Instructions: Ankle Stirrup Splint You are to use an ankle brace called a stirrup splint. This type of brace allows you to place greater stresses on the ankle without risk of re-injury, and is often used for more severe ankle injuries such as avulsion fractures and ligament ruptures. The splint can be worn over a sock or tape. For proper support, wear the splint with a shoe over it. It's important that the splint fit properly. Adjust the heel tension, if needed. If your splint has air bladders, peel back the bottom of each air bladder, then move the Velcro attachment of the heel strap up or down. Air bladder pressure can be adjusted by pulling up the valve at the top, threading the air tube down into the main bladder, then blowing air into the bladder or squeezing it out. The two sides of the stirrup can be moved forward or back on your ankle by changing the attachment of the main straps. If you are unable to use the ankle comfortably in the splint, return for re-evaluation. I recommend you take Tylenol extra strength 1000 mg twice a day if needed for ankle pain. Forms: Elevated Blood Pressure I personally performed the services described in the documentation, reviewed and edited the documentation which was dictated to the scribe in my presence, and it accurately records my words and actions.
--- NOTE | 2019-12-19 19:21 | EKG REPORT ---
SEVERITY:- NORMAL ECG - SINUS RHYTHM : Confirmed by: Izabela Diggs 19-Dec-2019 19:21:10
== END 2019-12-19 15:50 | disposition home or self-care (01) ==
LOC: ER 12:45
DX: S93.402A Sprain of unspecified ligament of left ankle, initial encounter (principal); X50.0XXA Overexertion from strenuous movement or load, initial encounter; I10 Essential (primary) hypertension; Z59.0 Homelessness
CPT/HCPCS: 36415; 71046; 80053; 81001; 82550; 82553; 84484; 85025; 93005; 93010; 99284

== ENCOUNTER 2019-12-26 11:06 | Emergency (ER) | payer SELFPAY ==
--- NOTE | 2019-12-26 14:00 | ER Document Report ---
ED Extremity Problem, Lower - General Chief Complaint: Leg Swelling Stated Complaint: LEG SWELLING Time Seen by Provider: 12/26/19 13:46 Mode of Arrival: Wheelchair Information source: Patient Notes: Patient is a 54-year-old female comes emergency room complaining of left ankle and foot pain. Patient was seen here in the emergency room on 12/19/2019 for a fall she sustained. She states she is walking and stepped in a hole rolling her ankle. She had x-rays here they were negative but she is continued to have increased pain and swelling and is concerned something is wrong. TRAVEL OUTSIDE OF THE [place] IN LAST 30 DAYS: No - HPI Patient complains to provider of: Pain, Swelling Location: Ankle, Foot Occurred: Last week Where: Outdoors Onset/Duration: Sudden, Worse Quality of pain: Sharp, Throbbing Severity: Moderate Pain Level: 3 Context: Wearing shoes Recent injury: Yes Exacerbated by: Movement, Walking Relieved by: Rest - Related Data Allergies/Adverse Reactions: Iodine and Iodide Containing Produc Allergy (Intermediate, Verified 12/19/19 13:12) itching hydrocodone bitartrate [From Vicodin] Allergy (Verified 12/19/19 13:12) lidocaine [Lidocaine] Allergy (Verified 12/19/19 13:12) propoxyphene napsylate [From Darvocet-N 100] Allergy (Verified 12/19/19 13:12) shellfish derived Allergy (Verified 12/19/19 13:12) itching Home Medications: omeprazole Past Medical History - General Information source: Patient - Social History Smoking Status: Never Smoker Cigarette use (# per day): No Chew tobacco use (# tins/day): No Smoking Education Provided: No Frequency of alcohol use: None Drug Abuse: None Lives with: Family Family History: Reviewed & Not Pertinent, DM, Hypertension, Malignancy - Past Medical History Cardiac Medical History: Reports: Hx Hypertension Denies: Hx Congestive Heart Failure, Hx Heart Attack Pulmonary Medical History: Denies: Hx Asthma, Hx Bronchitis, Hx COPD, Hx Pneumonia, Hx Tuberculosis Neurological Medical History: Reports: Hx Migraine. Denies: Hx Seizures, Hx P arkinson's Disease Renal/ Medical History: Reports: Hx Kidney Stones. Denies: Hx End Stage Renal Disease, Hx Peritoneal Dialysis GI Medical History: Reports: Hx Gastroesophageal Reflux Disease, Hx Ulcer. Denies: Hx Cirrhosis Musculoskeletal Medical History: Denies Hx Arthritis, Denies Hx Multiple Sclerosis, Reports Hx Musculoskeletal Trauma Psychiatric Medical History: Reports: Hx Depression Denies: Hx Bipolar Disorder, Hx Schizophrenia Past Surgical History: Reports: Hx Abdominal Surgery - hernia, Hx Breast Surgery - L biopsy, Hx Inguinal Hernia, Hx Tubal Ligation. Denies: Hx Hysterectomy - Immunizations Immunizations up to date: Yes Hx Diphtheria, Pertussis, Tetanus Vaccination: Yes Review of Systems - Review of Systems Constitutional: No symptoms reported EENT: No symptoms reported Cardiovascular: No symptoms reported Respiratory: No symptoms reported Gastrointestinal: No symptoms reported Genitourinary: No symptoms reported Female Genitourinary: No symptoms reported Musculoskeletal: See HPI, Joint pain, Joint swelling, Ankle swelling Skin: No symptoms reported Hematologic/Lymphatic: No symptoms reported Neurological/Psychological: No symptoms reported -: Yes All other systems reviewed and negative Physical Exam - Vital signs Vitals: Temp Pulse Resp BP Pulse Ox 98.0 F 83 16 153/94 H 99 12/26/19 11:17 12/26/19 11:17 12/26/19 11:17 12/26/19 11:17 12/26/19 11:17 Interpretation: Hypertensive - Notes Notes: PHYSICAL EXAMINATION: GENERAL: Patient is a well-nourished well-developed 54-year-old female who is in no apparent distress on physical exam this afternoon. She does appear to be somewhat uncomfortable. HEAD: Atraumatic, normocephalic. NECK: Normal range of motion, supple without lymphadenopathy LUNGS: Breath sounds clear to auscultation bilaterally and equal. No wheezes rales or rhonchi. HEART: Regular rate and rhythm without murmurs Female : deferred Musculoskeletal: Exam of patient's area concern is her left ankle and foot. Examination shows patient has circumferential swelling on the left ankle with greater swelling on the lateral aspect at the lateral malleolus. She has some mild swelling on the medial malleoli are area. She also has some swelling on the dorsal aspect of the foot around metatarsals 3 and 4. There is no discoloration or ecchymosis seen on the ankle or the foot. Patient has flexion- extension at the ankle and foot with some mild discomfort. Rotation is also noted to be slightly diminished secondary to discomfort. Patient has good cap refill in nailbeds of the toes of the left foot. Good dorsalis pedal pulses also noted. NEUROLOGICAL: Normal speech, normal gait. Normal sensory, motor exams PSYCH: Normal mood, normal affect. SKIN: Warm, Dry, normal turgor, no rashes or lesions noted. Course - Re-evaluation Re-evalutation: 12/26/19 15:02 Patient's x-rays were negative for any type of fractures or even demonstratable hairline fracture healing. Although I do believe she has some tendon or ligament damage in the ankle itself. Given these findings I would not place patient in a stirrup splint Ortho-Glass. She will be nonweightbearing and given her the name of the orthopedist on-call surgeon contact them to see if they can accommodate her. - Vital Signs Vital signs: Temp Pulse Resp BP Pulse Ox 98.0 F 83 16 153/94 H 99 12/26/19 11:17 12/26/19 11:17 12/26/19 11:17 12/26/19 11:17 12/26/19 11:17 Procedures - Immobilization Left Ankle Time completed: 15:03 Pre-Proc Neuro Vasc Exam: Normal Immobilizer type: Ankle stirrup Performed by: PCT Post-Proc Neuro Vasc Exam: Normal Alignment checked and good: Yes Discharge - Discharge Clinical Impression: Ankle sprain Qualifiers: Encounter type: subsequent encounter Involved ligament of ankle: unspecified ligament Laterality: left Qualified Code(s): S93.402D - Sprain of unspecified ligament of left ankle, subsequent encounter Acute traumatic internal derangement of left ankle Qualifiers: Encounter type: subsequent encounter Qualified Code(s): S93.05XD - Dislocation of left ankle joint, subsequent encounter Condition: Stable Disposition: HOME, SELF-CARE Instructions: Ice Packs ([facility]), Splint Precautions ([facility]), Sprained Ankle ([facility]) Additional Instructions: As we discussed since you are not getting better it is best to place you in a splint and nonweightbearing. I am giving you the name of the orthopedic doctors on-call for the ER today. You may contact his office to see if they can accommodate you. In the meantime you can ice down through the the splint by applying a garbage bag over top and ice packs on the top and bottom. You can let it sit there for at least an hour because it has to go through the splint material in order to work. I am writing you for a medication that for pain that should work better than ibuprofen. And you need to keep track of your blood pressures. There is still a little high here in the emergency room. This can be because of pain but is something that needs to be addressed and monitor closely. Highly suggest you discuss it with your primary care provider. Should you have any concerns or problems you return to ER for reevaluation. Prescriptions: Diclofenac Sodium 75 mg PO BID PRN #20 tablet.dr FREEDMAN Reason: Forms: Elevated Blood Pressure Referrals: LORENA BAL MD [ACTIVE STAFF] - Follow up as needed
--- NOTE | 2019-12-26 14:19 | RADIOLOGY REPORT (SQ) ---
EXAM DESCRIPTION: ANKLE LEFT COMPLETE; FOOT LEFT COMPLETE IMAGES COMPLETED DATE/TIME: 12/26/2019 2:08 pm REASON FOR STUDY: Continued pain swelling/ Looking for ocult fx; pain fell on COMPARISON: 12/19/2019 EXAM PARAMETERS: NUMBER OF VIEWS: Six views. TECHNIQUE: AP, lateral and oblique radiographic images acquired of the left foot and ankle LIMITATIONS: None. FINDINGS: MINERALIZATION: Normal. BONES: No acute fracture or dislocation. No worrisome bone lesions. JOINTS: No effusion. SOFT TISSUES: No significant soft tissue swelling. No radiopaque foreign body. OTHER: No other significant finding. IMPRESSION: NO FRACTURE. TECHNICAL DOCUMENTATION: JOB ID: [id number] [place]-72 2010 [employer]- All Rights Reserved Reading location - IP/workstation name: [email or web address]
--- NOTE | 2019-12-26 14:19 | RADIOLOGY REPORT (SQ) ---
EXAM DESCRIPTION: ANKLE LEFT COMPLETE; FOOT LEFT COMPLETE IMAGES COMPLETED DATE/TIME: 12/26/2019 2:08 pm REASON FOR STUDY: Continued pain swelling/ Looking for ocult fx; pain fell on COMPARISON: 12/19/2019 EXAM PARAMETERS: NUMBER OF VIEWS: Six views. TECHNIQUE: AP, lateral and oblique radiographic images acquired of the left foot and ankle LIMITATIONS: None. FINDINGS: MINERALIZATION: Normal. BONES: No acute fracture or dislocation. No worrisome bone lesions. JOINTS: No effusion. SOFT TISSUES: No significant soft tissue swelling. No radiopaque foreign body. OTHER: No other significant finding. IMPRESSION: NO FRACTURE. TECHNICAL DOCUMENTATION: JOB ID: [id number] [place]-[id number] 2010 [employer]- All Rights Reserved Reading location - IP/workstation name: [email or web address]
[2019-12-26] MEDS ORDERED: TRAMADOL HCL 50 MG TABLET PO ONE (16:25)
[2019-12-26 16:26] VITALS: BP 172/107
== END 2019-12-26 16:44 | disposition home or self-care (01) ==
LOC: ER 11:06
DX: S93.05XA Dislocation of left ankle joint, initial encounter (principal); S93.402A Sprain of unspecified ligament of left ankle, initial encounter; M79.672 Pain in left foot; W19.XXXA Unspecified fall, initial encounter; Y93.01 Activity, walking, marching and hiking; I10 Essential (primary) hypertension; K21.9 Gastro-esophageal reflux disease without esophagitis; Z79.899 Other long term (current) drug therapy; Z88.6 Allergy status to analgesic agent; Z88.5 Allergy status to narcotic agent; Z88.4 Allergy status to anesthetic agent; Z91.013 Allergy to seafood
CPT/HCPCS: 99283

== ENCOUNTER 2020-01-16 06:36 | Emergency (ER) | payer SELFPAY ==
[2020-01-16 07:11] LABS: APPEARANCE,URINE CLEAR; BILIRUBIN,URINE NEGATIVE (NEGATIVE); COLOR,URINE YELLOW; GLUCOSE, URINE 50 mg/dL (NEGATIVE); KETONES,URINE NEGATIVE (NEGATIVE); LEUKOCYTE ESTERASE,URINE NEGATIVE (NEGATIVE); NITRITE,URINE NEGATIVE (NEGATIVE); PROTEIN,URINE 30 mg/dL (NEGATIVE); URINE SPECIFIC GRAVITY 1.015; UROBILINOGEN,URINE NEGATIVE mg/dL (<2.0)
[2020-01-16] MEDS ORDERED: MORPHINE SULFATE 10 MG/ML INJ IV ONE (08:35)
[2020-01-16] MEDS ORDERED: ONDANSETRON HCL INJ/PF 4 MG/2 ML SDV IV ONE (08:37)
[2020-01-16 09:17] LABS: URINE AMPHETAMINES SCREEN NEGATIVE; URINE BARBITURATES SCREEN NEGATIVE; URINE BENZODIAZEPINES SCREEN NEGATIVE; URINE COCAINE SCREEN NEGATIVE; URINE MARIJUANA (THC) SCREEN NEGATIVE; URINE METHADONE SCREEN NEGATIVE; URINE PHENCYCLIDINE SCREEN NEGATIVE
[2020-01-16 09:54] LABS: ABSOLUTE EOSINOPHILS # (AUTO) 0.1 10^3/uL (0.0-0.6); ABSOLUTE LYMPHOCYTES (AUTO) 1.4 10^3/uL (0.5-4.7); ABSOLUTE MONOCYTES (AUTO) 0.3 10^3/uL (0.1-1.4); ABSOLUTE NEUT (AUTO) 2.1 10^3/uL (1.7-8.2); HEMATOCRIT 42.2 % (36.0-47.0); HEMOGLOBIN 14.1 g/dL (12.0-15.5); LYMPHOCYTES % (AUTO) 35.8 % (13-45); MEAN CORPUSCULAR HEMOGLOBIN 29.1 pg (27.0-33.4); MEAN CORPUSCULAR HGB CONC 33.3 g/dL (32.0-36.0); MEAN CORPUSCULAR VOLUME 87 fl (80-97); PLATELET COUNT 212 10^3/uL (150-450); RED BLOOD COUNT 4.84 10^6/uL (3.72-5.28); RED CELL DISTRIBUTION WIDTH 14.8 % (11.5-14.0); SEGMENTED NEUTROPHILS % (AUTO) 53.2 % (42-78); TOTAL CELLS COUNTED % (AUTO) 100 %; WHITE BLOOD COUNT 3.9 10^3/uL (4.0-10.5)
[2020-01-16 10:05] LABS: ALBUMIN 3.9 g/dL (3.5-5.0); ALKALINE PHOSPHATASE 86 U/L (38-126); ANION GAP 9 (5-19); ASPARTATE AMINO TRANSFERASE 78 U/L (14-36); BILIRUBIN,DIRECT 0.4 mg/dL (0.0-0.4); BILIRUBIN,TOTAL 0.8 mg/dL (0.2-1.3); BLOOD UREA NITROGEN 9 mg/dL (7-20); CARBON DIOXIDE 28 mmol/L (22-30); CHLORIDE 105 mmol/L (98-107); GLUCOSE 98 mg/dL (75-110); POTASSIUM 3.8 mmol/L (3.6-5.0); TOTAL PROTEIN 7.6 g/dL (6.3-8.2)
[2020-01-16] MEDS ORDERED: NORMAL SALINE 1000 ML 1,000 ML IV ONE (10:49)
[2020-01-16 11:04] VITALS: BP 142/87
[2020-01-16] MEDS ORDERED: METHYLPREDNISOLONE INJ 125 MG/2 ML SDV IV ONE (11:24)
[2020-01-16] MEDS ORDERED: DIPHENHYDRAMINE HCL 50 MG/ML VIAL IV ONE (11:24)
[2020-01-16] MEDS ORDERED: FAMOTIDINE INJ/PF 20 MG/2 ML SDV IV ONE (11:25)
--- NOTE | 2020-01-16 13:03 | RADIOLOGY REPORT (SQ) ---
EXAM DESCRIPTION: CT ABD/PELVIS WITH IV ORAL IMAGES COMPLETED DATE/TIME: 01/16/2020 12:21 pm REASON FOR STUDY: left flank/abd pain COMPARISON: 12/15/2019 TECHNIQUE: CT scan of the abdomen and pelvis performed using helical scanning technique with dynamic intravenous contrast injection. No oral contrast. Images reviewed with lung, soft tissue, and bone windows. Reconstructed coronal and sagittal MPR images reviewed. Delayed images for evaluation of the urinary system also acquired. All images stored on PACS. All CT scanners at this facility use dose modulation, iterative reconstruction, and/or weight based d osing when appropriate to reduce radiation dose to as low as reasonably achievable (ALARA). [facility]: Dose Right [facility]: CareDose [facility]: Dose Right [facility]: Teradose 4D [facility]: [employer] CONTRAST TYPE AND DOSE: contrast/concentration: Isovue 350.00 mmol/ml; Total Contrast Delivered: 88. 0 ml; Total Saline Delivered: 54.9 ml RENAL FUNCTION: GFR > 60. RADIATION DOSE: CT Rad equipment meets quality standard of care and radiation dose reduction techniq ues were employed. CTDIvol: 9.8 - 13.5 mGy. DLP: 1199 mGy-cm.. LIMITATIONS: None. FINDINGS: LOWER CHEST: No significant findings. No nodules or infiltrates. LIVER: Mildly diffusely fatty, otherwise normal. SPLEEN: Normal size. No focal lesions. PANCREAS: No masses. No significant calcifications. No adjacent inflammation or peripancreatic fluid collections. Pancreatic duct not dilated. GALLBLADDER: No identified stones by CT criteria. No inflammatory changes to suggest cholecystitis. ADRENAL GLANDS: No significant masses or asymmetry. RIGHT KIDNEY AND URETER: No solid masses. No significant calcification. No hydronephrosis or hydroure ter. LEFT KIDNEY AND URETER: No solid masses. No significant calcification. No hydronephrosis or hydrouret er. AORTA AND VESSELS: No aneurysm. No dissection. Renal arteries, SMA, celiac without stenosis. RETROPERITONEUM: No retroperitoneal adenopathy, hemorrhage or masses. BOWEL AND PERITONEAL CAVITY: No masses or inflammatory changes. No free fluid or peritoneal masses. APPENDIX: Normal. PELVIS: No mass. No free fluid. Normal bladder. ABDOMINAL WALL: No masses. No hernias. BONES: No significant or acute findings. OTHER: No other significant finding. IMPRESSION: NO SIGNIFICANT OR ACUTE FINDING IN THE ABDOMEN OR PELVIS ON CT SCAN WITH IV CONTRAST. TECHNICAL DOCUMENTATION: JOB ID: [id number] Quality ID # [id number]: Final reports with documentation of one or more dose reduction techniques (e.g., Au tomated exposure control, adjustment of the mA and/or kV according to patient size, use of iterative reconstruction technique) 2010 [email or web address]- All Rights Reserved Reading location - IP/workstation name: [email or web address]
--- NOTE | 2020-01-16 13:52 | ER Document Report ---
Entered by JONG DYE SCRIBE 01/16/20 0907 Acting as scribe for:GRACIE JJ MD ED GI/ - General Chief Complaint: Urinary Problem Stated Complaint: PAINFUL URINATION Time Seen by Provider: 01/16/20 07:55 Information source: Patient Notes: This 54 year old female patient presents to the emergency department today with complaints of pain with urination for the past x2 days. Patient states she has been urinating frequently and only small amounts. Patient reports left flank pain that does not radiate. Patient reports abdominal pain and denies any fever, chills, or vomiting. TRAVEL OUTSIDE OF THE [place] IN LAST 30 DAYS: No - Related Data Allergies/Adverse Reactions: Iodine and Iodide Containing Produc Allergy (Intermediate, Verified 12/19/19 13:12) itching hydrocodone bitartrate [From Vicodin] Allergy (Verified 12/19/19 13:12) lidocaine [Lidocaine] Allergy (Verified 12/19/19 13:12) propoxyphene napsylate [From Darvocet-N 100] Allergy (Verified 12/19/19 13:12) shellfish derived Allergy (Verified 12/19/19 13:12) itching tramadol Allergy (Verified 01/16/20 08:15) Home Medications: diovan, benadryl Past Medical History - General Information source: Patient - Social History Smoking Status: Never Smoker Cigarette use (# per day): No Family History: Reviewed & Not Pertinent, DM, Hypertension, Malignancy Patient has homicidal ideation: No - Past Medical History Cardiac Medical History: Reports: Hx Hypertension Neurological Medical History: Reports: Hx Migraine Renal/ Medical History: Reports: Hx Kidney Stones GI Medical History: Reports: Hx Gastroesophageal Reflux Disease, Hx Ulcer Musculoskeletal Medical History: Reports Hx Musculoskeletal Trauma Psychiatric Medical History: Reports: Hx Depression Past Surgical History: Reports: Hx Abdominal Surgery - hernia, Hx Breast Surgery - L biopsy, Hx Inguinal Hernia, Hx Tubal Ligation - Immunizations Immunizations up to date: Yes Hx Diphtheria, Pertussis, Tetanus Vaccination: Yes Review of Systems - Review of Systems Constitutional: See HPI. denies: Chills, Fever EENT: No symptoms reported Cardiovascular: No symptoms reported Respiratory: No symptoms reported Gastrointestinal: See HPI, Abdominal pain. denies: Vomiting Genitourinary: See HPI, Frequency, Flank pain - L, Pain Female Genitourinary: No symptoms reported Musculoskeletal: No symptoms reported Skin: No symptoms reported Hematologic/Lymphatic: No symptoms reported Neurological/Psychological: No symptoms reported -: Yes All other systems reviewed and negative Physical Exam - Vital signs Vitals: Temp Pulse Resp BP Pulse Ox 98.3 F 80 18 155/105 H 99 01/16/20 06:46 01/16/20 06:46 01/16/20 06:46 01/16/20 06:46 01/16/20 06:46 - General General appearance: Appears well, Alert - HEENT Head: Normocephalic, Atraumatic Eyes: Normal Pupils: PERRL - Respiratory Respiratory status: No respiratory distress Chest status: Nontender Breath sounds: Normal Chest palpation: Normal - Cardiovascular Rhythm: Regular Heart sounds: Normal auscultation Murmur: No - Abdominal Inspection: Normal Distension: No distension Bowel sounds: Normal Tenderness: Tender - LLQ - Back Notes: Tenderness with palpation to bilateral flanks. - Extremities General upper extremity: Normal inspection. No: Edema General lower extremity: Normal inspection. No: Edema - Neurological Neuro grossly intact: Yes Cognition: Normal Orientation: AAOx4 Speech: Normal - Psychological Associated symptoms: Normal affect, Normal mood - Skin Skin Temperature: Warm Skin Moisture: Dry Skin Color: Normal Course - Re-evaluation Re-evalutation: 01/16/20 13:47 Patient resting comfortably at this time not showing signs of distress still having urinary frequency. - Vital Signs Vital signs: Temp Pulse Resp BP Pulse Ox 98.2 F 76 17 142/87 H 98 01/16/20 11:03 01/16/20 11:03 01/16/20 11:03 01/16/20 11:03 01/16/20 11:03 01/16/20 13:47 Is a stable. - Laboratory Result Diagrams: 01/16/20 09:36 01/16/20 09:36 Laboratory results interpreted by me: 01/16/20 01/16/20 01/16/20 06:55 09:36 09:36 WBC 3.9 L RDW 14.8 H AST 78 H ALT 44 H Urine Protein 30 H Urine Glucose (UA) 50 H 01/16/20 13:48 Chemistries essentially within normal limits except for an AST of 78 ALT of 44. - Diagnostic Test Radiology reviewed: Image reviewed, Reports reviewed Radiology results interpreted by me: 01/16/20 13:48 CT abdomen and pelvis with IV contrast shows no definitive reason for any urinary obstruction stones or any other kind GI or anomaly. No evidence for obstruction noted. Discharge - Discharge Clinical Impression: Left flank pain, Urinary frequency, UTI (urinary tract infection) Condition: Stable Disposition: HOME, SELF-CARE Instructions: Urinary Tract Infection ([facility]), Nitrofurantoin ([facility]) Prescriptions: Nitrofurantoin Monohyd/M-Cryst [Macrobid 100 mg Capsule] 100 mg PO BID #20 cap Phenazopyridine HCl [Pyridium 200 mg Tablet] 200 mg PO TID PRN #15 tablet PRN Reason: urinary frequency /urgency I personally performed the services described in the documentation, reviewed and edited the documentation which was dictated to the scribe in my presence, and it accurately records my words and actions.
== END 2020-01-16 14:15 | disposition home or self-care (01) ==
LOC: ER 06:36
DX: N39.0 Urinary tract infection, site not specified (principal); R35.0 Frequency of micturition; R10.9 Unspecified abdominal pain; R39.198 Other difficulties with micturition; R30.9 Painful micturition, unspecified; Z88.8 Allergy status to other drugs, medicaments and biological substances; Z79.899 Other long term (current) drug therapy; I10 Essential (primary) hypertension
CPT/HCPCS: 99285; 96361; 96374; 96375; 36415; 87086; 83605; 83690; 85025; 80053; 81001; 80307; 74177; J1200; J2930; J2270; J2405; J7030; S0028

== ENCOUNTER 2020-02-04 15:05 | Emergency (ER) | payer SELFPAY ==
[2020-02-04 15:39] VITALS: BP 140/88
[2020-02-04] MEDS ORDERED: HYDROCORTISONE ACETATE 25 MG SUPP.RECT PR ONE (15:47)
--- NOTE | 2020-02-04 15:55 | ER Document Report ---
ED GI Bleed / Rectal Pain - General Chief Complaint: Hemorrhoids Stated Complaint: RECTAL PAIN Time Seen by Provider: 02/04/20 15:41 Primary Care Provider: [facility] [Provider Group] - Follow up as needed [facility] [Provider Group] - Follow up as needed Mode of Arrival: Ambulatory Information source: Patient Notes: 54-year-old female presented to ED for complaint of purple bumps on her buttocks. She states she noticed them a couple months ago but they have become more painful. She states she has not been to see a doctor concerning these. She states she is does not have any anal sex. She states she does not know why these bumps are there. She is alert oriented respirations regular nonlabored speaking in full sentences. She states she does have high blood pressure and allergies. She states she does not smoke drink or use any drugs. TRAVEL OUTSIDE OF THE [place] IN LAST 30 DAYS: No - HPI Patient complains to provider of: Rectal pain Onset: Other - Couple months Timing/Duration: Persistent, Worse Quality of pain: Throbbing Severity of symptoms: Moderate Pain Level: 4 Rectal foreign body: No Rectal pain with intercourse: No Associated symptoms: Other - Rectal pain and purple bumps to the rectum Exacerbated by: Other - Bowel movement Relieved by: Denies Similar symptoms previously: Yes Recently seen / treated by doctor: No - Related Data Allergies/Adverse Reactions: Iodine and Iodide Containing Produc Allergy (Intermediate, Verified 12/19/19 13:12) itching hydrocodone bitartrate [From Vicodin] Allergy (Verified 12/19/19 13:12) lidocaine [Lidocaine] Allergy (Verified 12/19/19 13:12) propoxyphene napsylate [From Darvocet-N 100] Allergy (Verified 12/19/19 13:12) shellfish derived Allergy (Verified 12/19/19 13:12) itching tramadol Allergy (Verified 01/16/20 08:15) Home Medications: Bp meds, benadryl Past Medical History - General Information source: Patient - Social History Smoking Status: Never Smoker Frequency of alcohol use: None Drug Abuse: None Family History: Reviewed & Not Pertinent, DM, Hypertension, Malignancy - Past Medical History Cardiac Medical History: Reports: Hx Hypertension Pulmonary Medical History: Reports: None EENT Medical History: Reports: None Neurological Medical History: Reports: Hx Migraine Endocrine Medical History: Reports: None Renal/ Medical History: Reports: Hx Kidney Stones Malignancy Medical History: Reports: None GI Medical History: Reports: Hx Gastroesophageal Reflux Disease, Hx Ulcer Musculoskeletal Medical History: Reports Hx Musculoskeletal Trauma Skin Medical History: Reports None Psychiatric Medical History: Reports: Hx Depression Traumatic Medical History: Reports: None Infectious Medical History: Reports: None Past Surgical History: Reports: Hx Abdominal Surgery - hernia, Hx Breast Surgery - L biopsy, Hx Inguinal Hernia, Hx Tubal Ligation - Immunizations Immunizations up to date: Yes Hx Diphtheria, Pertussis, Tetanus Vaccination: Yes Review of Systems - Review of Systems Constitutional: No symptoms reported EENT: No symptoms reported Cardiovascular: No symptoms reported Respiratory: No symptoms reported Gastrointestinal: Other - Rectal pain for a couple months Genitourinary: No symptoms reported Female Genitourinary: No symptoms reported Musculoskeletal: No symptoms reported Skin: No symptoms reported Hematologic/Lymphatic: No symptoms reported Neurological/Psychological: No symptoms reported -: Yes All other systems reviewed and negative Physical Exam - Vital signs Vitals: Temp Pulse Resp BP Pulse Ox 98.1 F 79 18 140/88 H 97 02/04/20 15:38 02/04/20 15:38 02/04/20 15:38 02/04/20 15:38 02/04/20 15:38 Interpretation: Normal - General General appearance: Appears well, Alert - HEENT Head: Normocephalic, Atraumatic Eyes: Normal Pupils: PERRL - Respiratory Respiratory status: No respiratory distress Chest status: Nontender Breath sounds: Normal Chest palpation: Normal - Cardiovascular Rhythm: Regular Heart sounds: Normal auscultation Murmur: No - Abdominal Inspection: Normal Distension: No distension Bowel sounds: Normal Tenderness: Nontender Organomegaly: No organomegaly - Rectal Tenderness: Yes Hemorrhoids: External - Back Back: Normal, Nontender - Extremities General upper extremity: Normal inspection, Nontender, Normal color, Normal ROM, Normal temperature General lower extremity: Normal inspection, Nontender, Normal color, Normal ROM, Normal temperature, Normal weight bearing. No: Edna's sign - Neurological Neuro grossly intact: Yes Cognition: Normal Orientation: AAOx4 [place] Coma Scale Eye Opening: Spontaneous [place] Coma Scale Verbal: Oriented [place] Coma Scale Motor: Obeys Commands [place] Coma Scale Total: 15 Speech: Normal Motor strength normal: LUE, RUE, LLE, RLE Sensory: Normal - Psychological Associated symptoms: Normal affect, Normal mood - Skin Skin Temperature: Warm Skin Moisture: Dry Skin Color: Normal Course - Re-evaluation Re-evalutation: 02/04/20 22:12 Patient came to the emergency room for purple painful bumps to her bottom. On examination she does have several external hemorrhoids. She was treated with an Anusol in the emergency room given a prescription for Anusol. She was also instructed she could use Preparation H if she cannot afford Anusol. She states if this will help with her pain she will use the Anusol. She was also given directions concerning constipation stool softeners and laxatives to prevent bearing-down on stools. Patient verbalized understanding and agreement with treatment plan patient was discharged home. - Vital Signs Vital signs: Temp Pulse Resp BP Pulse Ox 98.1 F 79 18 140/88 H 97 02/04/20 15:38 02/04/20 15:38 02/04/20 15:38 02/04/20 15:38 02/04/20 15:38 Discharge - Discharge Clinical Impression: Hemorrhoids Qualifiers: Hemorrhoid type: unspecified Qualified Code(s): K64.9 - Unspecified hemorrhoids Condition: Stable Disposition: HOME, SELF-CARE Additional Instructions: Hemorrhoids You have hemorrhoids. These are formed by enlargement of veins around the anus. The cause is increased pressure in the veins, from or straining at bowel movements. Hemorrhoids often cause itching and bleeding with bowel movements. When a hemorrhoid becomes clotted, severe pain and swelling result. Soothing creams and suppositories are often prescribed. Warm sitz-baths may also decrease pain, swelling, and itching. Eat a high-fiber diet. Stool softeners such as Metamucil will help. Keep the area very clean. Medicated cleansing pads (such as Tucks) are useful after bowel movements. A hose-mounted shower unit (like a shower massager at low water pressure) can be used to clean around tender hemorrhoid tags. You should call the doctor or return if you develop fever, increasing pain, or an enlarging mass around the anus, or if you simply fail to improve with treatment. I have given you recommendations for Preparation H and warm sitz bath and Tucks pads. I have given you a prescription for Anusol suppositories. These are for hemorrhoids. He will also need a stool softener to help soften your stools CONSTIPATION: Constipation is a common problem. It is especially likely as you get older. Constipation is a common cause of abdominal pain, but sometimes causes no symptoms at all. Causes of constipation include certain medications, dehydration, diets, inactivity, and low-fiber intake. Rarely, it can be a symptom of underlying disease. The physician has evaluated you for this. Avoid constipation by eating a diet high in fiber, fruits, and vegetables. Drink plenty of liquids. Get regular exercise. If possible, avoid constipating medicines like narcotic pain medication. Some vitamin tablets can cause constipation. Stool softeners may be needed for difficult cases. An excellent stool softener is Konsyl which is available at [employer]. Just add a teaspoon to a glass of pineapple or orange juice daily or twice a day if needed. Laxatives are useful for occasional constipation. You should use them only when necessary. Too-frequent use can make your bowels dependent on them. Some over the counter laxatives available without prescription are: Milk of Magnesia, 1-2 tablespoons twice a day Dulcolax, 5 mg pill or 10 mg suppository. Citrate of Magnesia, 4-5 ounces a day for a day or two For acute constipation, Fleet's Enemas and Dulcolax suppositories are helpful. Chronic, group home use of laxatives or enemas is not a good idea. Your bowel may become dependant on them. You do not need to have a bowel movement every day. Many people do fine with a bowel movement every three or four days. You should call your doctor or return for re-evaluation if you pass blood in the stool, or if you develop fever or increasing abdominal pain. FOLLOW-UP CARE: If you have been referred to a physician for follow-up care, call the physicians office for an appointment as you were instructed or within the next two days. If you experience worsening or a significant change in your symptoms, notify the physician immediately or return to the Emergency Department at any time for re-evaluation. Prescriptions: Hydrocortisone Acetate [Anusol-Hc] 25 mg RC Q6 PRN #10 supp.rect PRN Reason: Forms: Elevated Blood Pressure Referrals: [facility] [Provider Group] - Follow up as needed [facility] [Provider Group] - Follow up as needed
== END 2020-02-04 15:58 | disposition home or self-care (01) ==
LOC: ER 15:05
DX: K64.4 Residual hemorrhoidal skin tags (principal); I10 Essential (primary) hypertension; Z79.899 Other long term (current) drug therapy; Z91.041 Radiographic dye allergy status; Z88.6 Allergy status to analgesic agent; Z88.5 Allergy status to narcotic agent; Z88.4 Allergy status to anesthetic agent; Z91.013 Allergy to seafood
CPT/HCPCS: 99283; J3490

== ENCOUNTER 2020-04-06 11:07 | Emergency (ER) | payer SELFPAY ==
--- NOTE | 2020-04-06 12:31 | ER Document Report ---
ED Medical Screen (RME) - General Chief Complaint: Abdominal Swelling Stated Complaint: UPPER ABDOMINAL SWELLING/LOWER BACK PAIN Time Seen by Provider: 04/06/20 12:23 Mode of Arrival: Ambulatory Information source: Patient Notes: HPI; 54-year-old female presents to the emergency room complaining of worsening chronic abdominal pain for the past 2 years. Also complaining of left flank pain and abdominal swelling for the past 2 days. States the pain is worse when laying flat. Also complains of urinary frequency but no dysuria. Denies any fevers, nausea, vomiting, no diarrhea. Takes aspirin with some relief. PE: Alert and oriented x3. Lungs: Clear to auscultation without rales, rhonchi, wheezes. Heart: Regular rate rhythm without murmurs, rubs, gallops. I have greeted and performed a rapid initial assessment of this patient. A comprehensive ED assessment and evaluation of the patient, analysis of test results and completion of the medical decision making process will be conducted by additional ED providers. I have specifically instructed the patient or family members with the patient to immediately return to any nursing staff should anything change in the patient's condition or with their chief complaint. TRAVEL OUTSIDE OF THE [place] IN LAST 30 DAYS: No - Related Data Allergies/Adverse Reactions: Iodine and Iodide Containing Produc Allergy (Intermediate, Verified 12/19/19 13:12) itching hydrocodone bitartrate [From Vicodin] Allergy (Verified 12/19/19 13:12) lidocaine [Lidocaine] Allergy (Verified 12/19/19 13:12) propoxyphene napsylate [From Darvocet-N 100] Allergy (Verified 12/19/19 13:12) shellfish derived Allergy (Verified 12/19/19 13:12) itching tramadol Allergy (Verified 01/16/20 08:15) Past Medical History - Social History Family history: DM, Hypertension, Malignancy - Past Medical History Cardiac Medical History: Reports: Hx Hypertension Denies: Hx Congestive Heart Failure, Hx Heart Attack Pulmonary Medical History: Denies: Hx Asthma, Hx Bronchitis, Hx COPD, Hx Pneumonia, Hx Tuberculosis Neurological Medical History: Reports: Hx Migraine. Denies: Hx Seizures, Hx Parkinson's Disease Renal/ Medical History: Reports: Hx Kidney Stones. Denies: Hx End Stage Renal Disease, Hx Peritoneal Dialysis GI Medical History: Reports: Hx Gastroesophageal Reflux Disease, Hx Ulcer. Denies: Hx Cirrhosis Musculoskeltal Medical History: Denies Hx Arthritis, Denies Hx Multiple Sclerosis, Reports Hx Musculoskeletal Trauma Psychiatric Medical History: Reports: Hx Depression Denies: Hx Bipolar Disorder, Hx Schizophrenia Past Surgical History: Reports: Hx Abdominal Surgery - hernia, Hx Breast Surgery - L biopsy, Hx Inguinal Hernia, Hx Tubal Ligation. Denies: Hx Hysterectomy - Immunizations Immunizations up to date: Yes Hx Diphtheria, Pertussis, Tetanus Vaccination: Yes Physical Exam - Vital signs Vitals: Temp Pulse Resp BP Pulse Ox 98.5 F 84 16 165/111 H 100 04/06/20 11:12 04/06/20 11:12 04/06/20 11:12 04/06/20 11:12 04/06/20 11:12 Course - Vital Signs Vital signs: Temp Pulse Resp BP Pulse Ox 98.5 F 84 16 165/111 H 100 04/06/20 11:12 04/06/20 11:12 04/06/20 11:12 04/06/20 11:12 04/06/20 11:12
[2020-04-06 12:55] LABS: ABSOLUTE EOSINOPHILS # (AUTO) 0.1 10^3/uL (0.0-0.6); ABSOLUTE LYMPHOCYTES (AUTO) 2.3 10^3/uL (0.5-4.7); ABSOLUTE MONOCYTES (AUTO) 0.4 10^3/uL (0.1-1.4); ABSOLUTE NEUT (AUTO) 2.5 10^3/uL (1.7-8.2); BASOPHILS % (AUTO) 0.2 % (0-2); EOSINOPHILS % (AUTO) 1.4 % (0-6); HEMOGLOBIN 14.7 g/dL (12.0-15.5); LYMPHOCYTES % (AUTO) 44.3 % (13-45); MEAN CORPUSCULAR HEMOGLOBIN 29.7 pg (27.0-33.4); MEAN CORPUSCULAR VOLUME 87 fl (80-97); PLATELET COUNT 250 10^3/uL (150-450); RED BLOOD COUNT 4.94 10^6/uL (3.72-5.28); RED CELL DISTRIBUTION WIDTH 13.7 % (11.5-14.0); SEGMENTED NEUTROPHILS % (AUTO) 47.1 % (42-78); TOTAL CELLS COUNTED % (AUTO) 100 %; WHITE BLOOD COUNT 5.3 10^3/uL (4.0-10.5)
[2020-04-06 13:02] LABS: APPEARANCE,URINE CLEAR; BILIRUBIN,URINE NEGATIVE (NEGATIVE); COLOR,URINE YELLOW; GLUCOSE, URINE NEGATIVE (NEGATIVE); KETONES,URINE NEGATIVE (NEGATIVE); LEUKOCYTE ESTERASE,URINE NEGATIVE (NEGATIVE); NITRITE,URINE NEGATIVE (NEGATIVE); PROTEIN,URINE NEGATIVE (NEGATIVE); URINE SPECIFIC GRAVITY 1.016; UROBILINOGEN,URINE NEGATIVE mg/dL (<2.0)
[2020-04-06 13:17] LABS: ALBUMIN 4.4 g/dL (3.5-5.0); ALKALINE PHOSPHATASE 96 U/L (38-126); ANION GAP 10 (5-19); ASPARTATE AMINO TRANSFERASE 67 U/L (14-36); BILIRUBIN,DIRECT 0.2 mg/dL (0.0-0.4); BILIRUBIN,TOTAL 0.6 mg/dL (0.2-1.3); BLOOD UREA NITROGEN 11 mg/dL (7-20); CALCIUM 9.4 mg/dL (8.4-10.2); CARBON DIOXIDE 31 mmol/L (22-30); CHLORIDE 100 mmol/L (98-107); GLUCOSE 95 mg/dL (75-110); POTASSIUM 3.5 mmol/L (3.6-5.0); TOTAL PROTEIN 8.4 g/dL (6.3-8.2)
--- NOTE | 2020-04-06 16:07 | ER Document Report ---
ED GI/ - General Chief Complaint: Abdominal Pain Stated Complaint: UPPER ABDOMINAL SWELLING/LOWER BACK PAIN Time Seen by Provider: 04/06/20 12:23 Mode of Arrival: Ambulatory Notes: CHIEF COMPLAINT: Left flank pain HPI: 54-year-old female presenting with left flank pain for 2 to 3 days. She is worried about her kidney. Occasional frequency of urination but no specific dysuria. No fever no nausea no vomiting. Did not see her PCP for evaluation of symptoms. ROS: See HPI - all other systems were reviewed and are otherwise negative Constitutional: no fever Eyes: no drainage, no blurred vision ENT: no runny nose, no sore throat Cardiovascular: no chest pain Resp: no SOB, no cough GI: no vomiting, no diarrhea, + abdominal pain : no dysuria Integumentary: no rash Allergy: no hives Musculoskeletal: no extremity pain or swelling Neurological: no numbness/tingling, no weakness MEDICATIONS: I agree with the patient medications as charted by the RN. ALLERGIES: I agree with the allergies as charted by the RN. PAST MEDICAL HISTORY/PAST SURGICAL HISTORY: Reviewed and agree as charted by RN. SOCIAL HISTORY: Reviewed and agree as charted by RN. FAMILY HISTORY: No significant familial comorbid conditions directly related to patient complaint EXAM: Reviewed vital signs as charted by RN. CONSTITUTIONAL: Alert and oriented and responds appropriately to questions. Well-appearing; well-nourished HEAD: Normocephalic; atraumatic EYES: PERRL; Conjunctivae clear, sclerae non-icteric ENT: normal nose; no rhinorrhea; moist mucous membranes; pharynx without lesions noted, no uvula edema or deviation, no tonsillar hypertrophy, phonation normal NECK: Supple without meningismus; non-tender; no cervical lymphadenopathy, no masses CARD: RRR; no murmurs, no clicks, no rubs, no gallops; symmetric distal pulses RESP: Normal chest excursion without splinting or tachypnea; breath sounds clear and equal bilaterally; no wheezes, no rhonchi, no rales, pulse oximetry 98% on room air not hypoxic ABD/GI: Normal bowel sounds; non-distended; soft, minimal tenderness in the left flank region on palpation, no rebound, no guarding; no palpable organomegaly or masses. BACK: The back appears normal and is non-tender to palpation, there is no CVA tenderness EXT: Normal ROM in all joints; non-tender to palpation; no cyanosis, no effusions, no edema SKIN: Normal color for age and race; warm; dry; good turgor; no acute lesions noted NEURO: Moves all extremities equally; Motor and sensory function intact PSYCH: The patient's mood and manner are appropriate. Grooming and personal hygiene are appropriate. MDM: 54-year-old female presenting with left flank pain. Patient has history of chronic abdominal issues, was last seen in December of this year for similar complaint. Had CT imaging and lab work at that time that were normal. Her lab work and urinalysis today done prior to my evaluation were all normal and nonactionable. Discussed at length with the patient. This could be simply a musculoskeletal issue. Patient would like CT imaging today to ensure that she does not have any other concerning problems. She has no pelvic discomfort suggesting an ovarian cyst. She has normal vital signs. Lower suspicion for diverticulitis although it is in the differential. TRAVEL OUTSIDE OF THE [place] IN LAST 30 DAYS: No - Related Data Allergies/Adverse Reactions: Iodine and Iodide Containing Produc Allergy (Intermediate, Verified 12/19/19 13:12) itching hydrocodone bitartrate [From Vicodin] Allergy (Verified 12/19/19 13:12) ketorolac [From Toradol] Allergy (Verified 04/06/20 16:45) lidocaine [Lidocaine] Allergy (Verified 12/19/19 13:12) propoxyphene napsylate [From Darvocet-N 100] Allergy (Verified 12/19/19 13:12) shellfish derived Allergy (Verified 12/19/19 13:12) itching tramadol Allergy (Verified 01/16/20 08:15) Past Medical History - General Information source: Patient - Social History Smoking Status: Unknown if Ever Smoked Family History: Reviewed & Not Pertinent, DM, Hypertension, Malignancy Patient has homicidal ideation: No - Past Medical History Cardiac Medical History: Reports: Hx Hypertension Denies: Hx Congestive Heart Failure, Hx Heart Attack Pulmonary Medical History: Denies: Hx Asthma, Hx Bronchitis, Hx COPD, Hx Pneumonia, Hx Tuberculosis Neurological Medical History: Reports: Hx Migraine. Denies: Hx Seizures, Hx Parkinson's Disease Renal/ Medical History: Reports: Hx Kidney Stones. Denies: Hx End Stage Renal Disease, Hx Peritoneal Dialysis GI Medical History: Reports: Hx Gastroesophageal Reflux Disease, Hx Ulcer. Denies: Hx Cirrhosis Musculoskeletal Medical History: Denies Hx Arthritis, Denies Hx Multiple Sclerosis, Reports Hx Musculoskeletal Trauma Psychiatric Medical History: Reports: Hx Depression Denies: Hx Bipolar Disorder, Hx Schizophrenia Past Surgical History: Reports: Hx Abdominal Surgery - hernia, Hx Breast Surgery - L biopsy, Hx Inguinal Hernia, Hx Tubal Ligation. Denies: Hx Hysterectomy - Immunizations Immunizations up to date: Yes Hx Diphtheria, Pertussis, Tetanus Vaccination: Yes Physical Exam - Vital signs Vitals: Temp Pulse Resp BP Pulse Ox 98.5 F 84 16 165/111 H 100 04/06/20 11:12 04/06/20 11:12 04/06/20 11:12 04/06/20 11:12 04/06/20 11:12 Course - Re-evaluation Re-evalutation: 04/06/20 17:24 Patient does not appear to be in significant distress in the room. I spoke to her about her results. Her CT imaging is negative. Her lab work is negative. There is no definitive reason for her symptoms at this time. She indicates she does not have a primary care provider. I will refer her to the on-call medical provider, she states she has no insurance, I will refer her to the [place] [facility]. She may need further outpatient follow-up with gastroenterology this can be arranged through the clinic. I will place the patient on Bentyl and diclofenac for her abdominal pain at this time 04/06/20 17:26 Patient was noted to be hypertensive here today. On review of her records she has been hypertensive multiple times previously in the past. I will have patient follow-up her blood pressure with the [place] [facility] as well for further management. Patient was made aware of this 04/06/20 17:28 Of note patient was given Toradol here for pain and did not have any allergic reaction to that while she was in the emergency department. - Vital Signs Vital signs: Temp Pulse Resp BP Pulse Ox 98.5 F 84 16 165/111 H 100 04/06/20 11:12 04/06/20 11:12 04/06/20 11:12 04/06/20 11:12 04/06/20 11:12 - Laboratory Result Diagrams: 04/06/20 12:30 04/06/20 12:30 Laboratory results interpreted by me: 04/06/20 12:30 Potassium 3.5 L Carbon Dioxide 31 H AST 67 H ALT 48 H Total Protein 8.4 H Discharge - Discharge Clinical Impression: Left flank pain Hypertension Qualifiers: Hypertension type: unspecified Qualified Code(s): I10 - Essential (primary) h ypertension Condition: Stable Disposition: HOME, SELF-CARE Additional Instructions: Your lab work and CT imaging today did not show acute abnormalities. There is not a definitive reason noted today for your flank pain. Take the Bentyl to treat the abdominal pain, Voltaren to also treat the abdominal pain. It was noted that you were mildly hypertensive today. Please make sure that when you follow-up with a medical provider that they recheck this to determine if you need further evaluation and treatment of high blood pressure. Prescriptions: Dicyclomine HCl [Bentyl 20 mg Tablet] 20 mg PO Q6H PRN #20 tablet PRN Reason: Diclofenac Sodium [Voltaren 50 Mg Tablet.] 50 mg PO BID #20 tablet. Referrals: DENIA BURDICK MD [NO LOCAL MD] - Follow up as needed
[2020-04-06] MEDS: KETOROLAC TROMETHAMINE INJ/PF 30 MG/1 ML SDV IV ONE ×2 (16:28→16:36)
--- NOTE | 2020-04-06 16:35 | RADIOLOGY REPORT (SQ) ---
EXAM DESCRIPTION: CT ABD/PELVIS NO ORAL OR IV IMAGES COMPLETED DATE/TIME: 04/06/2020 4:24 pm REASON FOR STUDY: left flank pain COMPARISON: Most recent 01/16/2020. TECHNIQUE: CT scan of the abdomen and pelvis performed without intravenous or oral contrast. Images reviewed with lung, soft tissue, and bone windows. Reconstructed coronal and sagittal MPR images revi ewed. All images stored on PACS. All CT scanners at this facility use dose modulation, iterative reconstruction, and/or weight based d osing when appropriate to reduce radiation dose to as low as reasonably achievable (ALARA). [facility]: Dose Right [facility]: CareDose [facility]: Dose Right [facility]: Teradose 4D [facility]: DNAnexus RADIATION DOSE: mGy. LIMITATIONS: None. FINDINGS: LOWER CHEST: No significant findings. No nodules or infiltrates. NON-CONTRASTED LIVER, SPLEEN, ADRENALS: Evaluation limited by lack of IV contrast. No identified sign ificant masses. PANCREAS: No masses. No peripancreatic inflammatory changes. GALLBLADDER: No identified stones by CT criteria. No inflammatory changes to suggest cholecystitis. RIGHT KIDNEY AND URETER: No suspicious masses. Assessment limited by lack of IV contrast. No signif icant calcifications. No hydronephrosis or hydroureter. LEFT KIDNEY AND URETER: No suspicious masses. Assessment limited by lack of IV contrast. No signifi cant calcifications. No hydronephrosis or hydroureter. AORTA AND RETROPERITONEUM: No aneurysm. No retroperitoneal masses or adenopathy. BOWEL AND PERITONEAL CAVITY: No obvious masses or inflammatory changes. No free fluid. APPENDIX: Not visualized. PELVIS, BLADDER, AND ABDOMINAL WALL:No abnormal masses. No free fluid. Bladder normal. BONES: No significant findings. OTHER: No other significant finding. IMPRESSION: NO SIGNIFICANT OR ACUTE PROCESS IN THE ABDOMEN OR PELVIS. COMMENT: Quality ID # [id number]: Final reports with documentation of one or more dose reduction techniques (e.g., Automated exposure control, adjustment of the mA and/or kV according to patient size, use of iterative reconstruction technique) TECHNICAL DOCUMENTATION: JOB ID: [id number] 2010 [employer]- All Rights Reserved Reading location - IP/workstation name: [email or web address]
[2020-04-06] MEDS ORDERED: DICYCLOMINE HCL INJ 20 MG/2 ML AMPULE IM ONE (17:23)
[2020-04-06] MEDS ORDERED: METOPROLOL SUCCINATE 25 MG TAB.SR.24H PO ONE (18:42)
[2020-04-06 19:23] VITALS: BP 203/114
--- OUTSIDE RECORDS SUMMARY | 2020-04-07 15:36 | XMS REPORT ---
:1965 Author [facility] Address [facility] [address] [place] [address] Care Team Providers Name Role Phone PCP, PER PATIENT Primary Care Physician Unavailable SANDRA SOLIZ Attending Clinician Unavailable DENIA VARMA Attending Clinician Unavailable Allergies, Adverse Reactions, Alerts Allergy Name Allergy Status Severity Reaction(s) Onset Inactive Treat ing Comments Type Date Date Clinician Iodine And Propensity Active Iodide to adverse 9-13 Containing reactions 00:00: Products 00 Acetaminophe Propensity Active 2017- n to adverse 9-13 reactions 00:00: 00 Hydrocodone Propensity Active to adverse 9-13 reactions 00:00: 00 Medications Ordered Filled Start Stop Current Ordering Indication Dosage Frequency Signature Comments Components Medication Medication Date Date Medication? Clinician (SIG) Name Name lisinopril Yes 20MG Take 20 mg Chi e 20 (PRINIVIL,Z -13 by mouth mg by ESTRIL) 20 13:33: daily. mouth MG tablet 28 daily. oxyCODONE Yes 15MG Take 15 mg Take 15 (ROXICODONE -13 by mouth mg by ) 15 MG 13:33: Every six mouth immediate 28 (6) hours. Every six release (6) tablet hours. predniSONE Yes Flank pain, Take 60 mg Take 60 (DELTASONE) 913 acute PO on day mg P O on 20 MG 00:00: 1, then 40 day 1, tablet 00 mg PO on then 40 days 2 & mg PO on 3, then 20 days 2 & mg PO on 3, then days 4 & 5 20 mg PO on days 4 & 5 cyclobenzap Yes Flank pain, 10MG Take 1 Take 1 rine 13 acute tablet (10 tablet (FLEXERIL) 00:00: mg total) (10 mg 10 MG 00 by mouth total) by tablet Three (3) mouth times a Three (3) day as times a needed for day as muscle needed spasms. for muscle spasms. Problems Condition Condition Condition Status Onset Resolution Last Treatin g Comments Name Details Category Date Date Treatment Clinician Date Problem No known Condition active problems Procedures Procedure Date / Time Performed Performing Clinician Vamshi anders URINALYSIS WITH CULTURE REFLEX 2018-02-06 11:39:00 Dali Fong BASIC METABOLIC PANEL 2018-02-06 11:37:00 Roxana Fong ruel CBC W/ AUTO DIFF 2018-02-06 11:37:00 Roxana Fonghryn D-DIMER, QUANTITATIVE 2018-02-06 11:37:00 Roxana Fong ruel PROTIME-INR 2018-02-06 11:37:00 Roxana Fong URINALYSIS 2018-02-05 14:57:[address] ABDOMEN PELVIS WO CONTRAST 2018-02-05 14:16:26 Nadira Raines COMPREHENSIVE METABOLIC PANEL 2018-02-05 13:54:00 Nadira Raines CBC W/ AUTO DIFF 2018-02-05 13:54:00 Nadira Raines Results Test Description Test Time Test Comments Text Results Atomic Results Result Comments Urinalysis with Culture Reflex 2018-02-06 11:39:00 Test Item Value Reference Range Comments Color, UA (test code = Color, UA) Light Yellow Clarity, UA (test code = Clarity, UA) Clear Specific [place], UA (test code = Specific [place], UA) 1.010 1.016-1.022 pH, UA (test code = pH, UA) 7.0 5.0-8.0 Leukocyte Esterase, UA (test code = Leukocyte Esterase, Negative Negative UA) Nitrite, UA (test code = Nitrite, UA) Negative Negative Protein, UA (test code = Protein, UA) Negative Negative Glucose, UA (test code = Glucose, UA) Negative Negative Ketones, UA (test code = Ketones, UA) Negative Negative Urobilinogen, UA (test code = Urobilinogen, UA) 0.2 mg/dL Bilirubin, UA (test code = Bilirubin, UA) Negative Negati ve Blood, UA (test code = Blood, UA) Negative Negative WBC, UA (test code = WBC, UA) 3 /HPF 0- 2 /HPF Squam Epithel, UA (test code = Squam Epithel, UA) 1 /HPF 0- 5 /HPF Bacteria, UA (test code = Bacteria, UA) Rare None See n /HPF Mucus, UA (test code = Mucus, UA) Rare None Seen /HPF Basic Metabolic [id number] 11:37:00 Test Item Value Reference Range Comments Sodium (test code = Sodium) 144 mmol/L 137- 145 mmol/L Potassium (test code = Potassium) 3.8 mmol/L 3.5- 5.1 mmol/ L Chloride (test code = Chloride) 107 mmol/L 98- 107 mmol/L CO2 (test code = CO2) 25.0 mmol/L 22.0- 30.0 mmol/L BUN (test code = BUN) 12 mg/dL 7- 17 mg/dL Creatinine (test code = Creatinine) 0.80 mg/dL 0.60- 1.00 m g/dL BUN/Creatinine Ratio (test code = 15 BUN/Creatinine Ratio) EGFR MDRD Non Af Amer (test code = EGFR MDRD >=60 >=6 0 mL/min/1.73m2 Non Af Amer) EGFR MDRD Af Amer (test code = EGFR MDRD Af >=60 >=60 mL/min/1.73m2 Amer) Anion Gap (test code = Anion Gap) 12 mmol/L 9- 15 mmol/L Glucose (test code = Glucose) 96 mg/dL 74- 106 mg/dL Calcium (test code = Calcium) 9.8 mg/dL 8.4- 10.2 mg/dL [id number] 11:37:00 Test Item Value Reference Range Comments PT (test code = PT) 12.9 sec 11.5- 15.0 sec INR (test code = INR) 0.98 0.90-1.10 D-Dimer, [id number] 11:37:00 Test Item Value Reference Range Comments D-Dimer (test code = D-Dimer) <0.27 0.00- 0.57 mcg/mL FEU CBC w/ [id number] 11:37:00 Test Item Value Reference Range Comments WBC (test code = WBC) 7.4 10*9/L 4.0- 10.0 10*9/L RBC (test code = RBC) 5.09 10*12/L 3.93- 5.22 10*12/L HGB (test code = HGB) 14.8 g/dL 11.2- 15.7 g/dL HCT (test code = HCT) 43.8 % 34.1- 44.9 % MCV (test code = MCV) 86.1 fL 79.4- 94.8 fL MCH (test code = MCH) 29.1 pg 25.7- 32.2 pg MCHC (test code = MCHC) 33.8 g/dL 32.2- 35.5 g/dL RDW (test code = RDW) 13.4 % 11.6- 14.4 % MPV (test code = MPV) 10.8 fL 9.4- 12.4 fL Platelet (test code = Platelet) 256 10*9/L 182- 369 10*9/L Neutrophils % (test code = Neutrophils %) 86.6 % Immature Granulocytes Relative Percent (test 0.5 % code = Immature Granulocytes Relative Percent) Lymphocytes % (test code = Lymphocytes %) 11.2 % Monocytes % (test code = Monocytes %) 1.4 % Eosinophils % (test code = Eosinophils %) 0.0 % Basophils % (test code = Basophils %) 0.3 % Absolute Neutrophils (test code = Absolute 6.4 10*9/L 1.6- 6.1 10*9/L Neutrophils) Immature Granulocytes Absolute Count (test 0.0 10*9/L 0.0- 1.0 10*9/L code = Immature Granulocytes Absolute Count) Absolute Lymphocytes (test code = Absolute 0.8 10*9/L 1.3- 3.6 10*9/L Lymphocytes) Absolute Monocytes (test code = Absolute 0.1 10*9/L 0.2- 0. 4 10*9/L Monocytes) Absolute Eosinophils (test code = Absolute 0.0 10*9/L 0.0- 0.4 10*9/L Eosinophils) Absolute Basophils (test code = Absolute 0.0 10*9/L 0.0- 0. 1 10*9/L Basophils) [id number] 14:57:00 Test Item Value Reference Range Comments Color, UA (test code = Color, UA) Colorless Clarity, UA (test code = Clarity, UA) Clear Specific [place], UA (test code = Specific 1.002 1.005 -1.030 [place], UA) pH, UA (test code = pH, UA) 8.0 5.0-8.0 Leukocyte Esterase, UA (test code = Leukocyte Negative Ne gative Esterase, UA) Nitrite, UA (test code = Nitrite, UA) Negative Negative Protein, UA (test code = Protein, UA) Negative Negative Glucose, UA (test code = Glucose, UA) Negative Negative Ketones, UA (test code = Ketones, UA) Negative Negative Urobilinogen, UA (test code = Urobilinogen, 0.2 mg/dL 0.2- 2.0 mg/dL UA) Bilirubin, UA (test code = Bilirubin, UA) Negative Negati ve Blood, UA (test code = Blood, UA) Negative Negative RBC, UA (test code = RBC, UA) 0 /HPF 0- 3 /HPF WBC, UA (test code = WBC, UA) 0 /HPF 0- 2 /HPF Squam Epithel, UA (test code = Squam Epithel, 0 /HPF 0- 5 /HPF UA) Bacteria, UA (test code = Bacteria, UA) None Seen None See n /HPF Urine Collection Type (test code = Urine Urine, Voided Collection Type) CT Abdomen Pelvis Wo [id number] 14:18:35CT Abdomen Pelvis Wo Contrast (02/05/2018 2:16 PM) Impressions Performed At No urolithiasis. No acute obstructive or inflammatory pathology is seen. Signed (Electronic Signature): 02/05/2018 2:23 PM Signed By: Seda Rosario MD [facility] Narrative Performed At Exam:Renal Colic CT History:Abdominal pain Technique: CT of the abdomen and pelvis without IV contrast. Renal colic protocol performed prone.This examination is performed without oral or IV contrast in order to specifically assess the urinary tract for the presence of an obstructing ureteral calculus. Assessment of the bowel andof the solid organs of the abdomen and pelvis is compromised as a consequence. DLP:418 mGy-cm. AEC (automated exposure control) and/or manual techniques such as size-specific kV and mAs are employed where appropriate to reduce radiation exposure for all CT exams. Comparison:None Abdomen and Pelvis CT Findings: KIDNEYS/URETERS:No urolithiasis is seen. Kidneys and urinary bladder appear grossly normal on noncontrast exam. BLADDER:Grossly normal LOWER THORAX:Heart size is normal. Lung bases are clear. HEPATOBILIARY:No gross abnormality is seen on noncontrast exam. PANCREAS:Grossly normal SPLEEN:Splenule is present. Spleen appears grossly normal. ADRENALS:Normal. VASCULAR:Abdominal aorta is normal in caliber. LYMPH NODES:No adenopathy. BOWEL/MESENTERY:Small bowel is normal in caliber throughout its course. The appendix appears normal. Colon is normal in caliber. PELVIC ORGANS:Urinary bladder appears grossly normal. Multiple phleboliths are present in the pelvis. Uterus and adnexa appear within normal limits. BONES/SOFT TISSUES:The regional bones and soft tissues appear grossly normal for age. [facility] Procedure Note Interface, Rad ResultsIn - 02/05/2018 2:25 PM EDT Exam: Renal Colic CT History: Abdominal pain Technique: CT of the abdomen and pelvis without IV contrast. Renal colic protocol performed prone. This examination is performedwithout oral or IV contrast in order to specifically assess the urinary tract for the presence of anobstructing ureteral calculus. Assessment of the bowel and of the solid organs of the abdomen and pelvis is compromised as a consequence. DLP: 418 mGy-cm. AEC (automated exposure control) and/or manualtechniques such as size-specific kV and mAs are employed where appropriate to reduce radiation exposure for all CT exams. Comparison: None Abdomen and Pelvis CT Findings: KIDNEYS/URETERS: No urolithiasis is seen. Kidneys and urinary bladder appear grossly normal on noncontrast exam. BLADDER: Grossly normal LOWER THORAX: Heart size is normal. Lung bases are clear. HEPATOBILIARY: No gross abnormality is seen on noncontrast exam. PANCREAS: Grossly normal SPLEEN: Splenule is present. Spleen appears grossly normal. ADRENALS: Normal. VASCULAR: Abdominal aorta is normal in caliber. LYMPH NODES: No adenopathy. BOWEL/MESENTERY: Small bowel is normal in caliber throughout its course. The appendix appears normal. Colon is normal in caliber. PELVIC ORGANS: Urinary bladder appears grossly normal. Multiple phleboliths are present in the pelvis. Uterus and adnexa appear within normal limits. BONES/SOFT TISSUES: The regional bones and soft tissues appear grossly normal for age. IMPRESSION: No urolithiasis. No acute obstructive or inflammatory pathology is seen. Signed (Electronic Signature): 02/05/2018 2:23 PMSigned By: Seda Rosario MD Performing Organization Address City/State/Zipcode Phone Number [id number] [phone] [place], [place] [id number] Metabolic [id number] 13:54:00 Test Item Value Reference Range Comments Sodium (test code = Sodium) 140 mmol/L 134- 145 mmol/L Potassium (test code = Potassium) 3.9 mmol/L 3.5- 5.1 mmol/ L Chloride (test code = Chloride) 106 mmol/L 98- 107 mmol/L CO2 (test code = CO2) 30.0 mmol/L 21.0- 32.0 mmol/L BUN (test code = BUN) 10 mg/dL 7- 18 mg/dL Creatinine (test code = Creatinine) 0.78 mg/dL 0.55- 1.02 m g/dL BUN/Creatinine Ratio (test code = 13 BUN/Creatinine Ratio) EGFR MDRD Non Af Amer (test code = EGFR MDRD >60 Non Af Amer) EGFR MDRD Af Amer (test code = EGFR MDRD Af >60 Amer) Anion Gap (test code = Anion Gap) 4 mmol/L 3- 11 mmol/L Glucose (test code = Glucose) 93 mg/dL 65- 99 mg/dL Calcium (test code = Calcium) 9.1 mg/dL 8.5- 10.1 mg/dL Albumin (test code = Albumin) 3.4 g/dL 3.4- 5.0 g/dL Total Protein (test code = Total Protein) 8.2 g/dL 6.4- 8 .2 g/dL Total Bilirubin (test code = Total Bilirubin) 0.4 mg/dL 0. 2- 1.0 mg/dL AST (test code = AST) 46 U/L 15- 37 U/L ALT (test code = ALT) 34 U/L 13- 56 U/L Alkaline Phosphatase (test code = Alkaline 64 U/L 45- 1 17 U/L Phosphatase) CBC w/ [id number] 13:54:00 Test Item Value Reference Range Comments WBC (test code = WBC) 5.5 10*9/L 4.0- 10.5 10*9/L RBC (test code = RBC) 4.89 10*12/L 4.22- 5.81 10*12/L HGB (test code = HGB) 13.9 g/dL 12.0- 15.0 g/dL HCT (test code = HCT) 42.9 % 36.0- 46.0 % MCV (test code = MCV) 87.6 fL 78.0- 100.0 fL MCH (test code = MCH) 28.4 pg 26.0- 34.0 pg MCHC (test code = MCHC) 32.4 g/dL 30.0- 36.0 g/dL RDW (test code = RDW) 13.9 % 11.5- 15.5 % MPV (test code = MPV) 9.7 fL 7.0- 10.0 fL Platelet (test code = Platelet) 197 10*9/L 150- 400 10*9/L Neutrophils % (test code = Neutrophils %) 69.7 % Lymphocytes % (test code = Lymphocytes %) 22.8 % Monocytes % (test code = Monocytes %) 6.0 % Eosinophils % (test code = Eosinophils %) 0.8 % Basophils % (test code = Basophils %) 0.7 % Absolute Neutrophils (test code = Absolute 3.9 10*9/L 1.7- 7.7 10*9/L Neutrophils) Absolute Lymphocytes (test code = Absolute 1.3 10*9/L 0.7- 4.0 10*9/L Lymphocytes) Absolute Monocytes (test code = Absolute 0.3 10*9/L 0.1- 1. 0 10*9/L Monocytes) Absolute Eosinophils (test code = Absolute 0.0 10*9/L 0.0- 0.7 10*9/L Eosinophils) Absolute Basophils (test code = Absolute 0.0 10*9/L 0.0- 0. 1 10*9/L Basophils) Encounters Start End Encounter Admission Attending Care Care Encounter ID Date/Time Date/Time Type Type Clinicians Facility Department 2018-02-06 2018-02-06 Emergency ER [facility], [facility] [id number] 11:03:22 12:50:00 ABBY [id number] 2018-02-06 2018-02-06 Emergency [facility] [id number] 11:03:22 12:50:00 2018-02-06 2018-02-06 Emergency ER [facility] [id number] 10:54:00 10:54:00 [id number] 2018-02-05 2018-02-05 Emergency ER [facility], [facility] [id number] 13:29:50 17:06:00 IGOR [id number] 2018-02-05 2018-02-05 Emergency [facility] [id number] 13:29:50 17:06:00 2018-02-05 2018-02-05 Emergency [facility] [id number] 14:11:06 14:11:06 [id number] 2018-02-05 2018-02-05 Emergency ER [facility] [id number] 13:28:00 13:28:00 [id number] Plan of Treatment Planned Activity Planned Date Details Comments Future Scheduled Test [code = ] Future Scheduled Test [code = ] Future Scheduled Test [code = ] Future Scheduled Test [code = ] Future Scheduled Test [code = ] Future Scheduled Test [code = ] Future Scheduled Test [code = ] Future Scheduled Test [code = ] Social History Social Habit Start Date Stop Date Comments Tobacco smoking status TNIS 2018-02-06 00:00:00 2018-02-06 00:00 :00 Vital Signs Vital Name Observation Time Observation Value Comments SYSTOLIC BLOOD PRESSURE 2018-02-06 12:49:00 158 mm[Hg] DIASTOLIC BLOOD PRESSURE 2018-02-06 12:49:00 108 mm[Hg] HEART RATE 2018-02-06 12:49:00 92 /min RESPIRATORY RATE 2018-02-06 12:49:00 20 /min OXYGEN SATURATION 2018-02-06 12:49:00 99 % BODY TEMPERATURE 2018-02-06 11:07:00 36.94 Deedee SYSTOLIC BLOOD PRESSURE 2018-02-05 15:31:00 173 mm[Hg] DIASTOLIC BLOOD PRESSURE 2018-02-05 15:31:00 86 mm[Hg] HEART RATE 2018-02-05 15:31:00 60 /min RESPIRATORY RATE 2018-02-05 15:31:00 18 /min BODY TEMPERATURE 2018-02-05 13:31:00 36.61 Deedee HEIGHT 2018-02-05 13:31:00 162.6 cm WEIGHT 2018-02-05 13:31:00 69.854 kg OXYGEN SATURATION 2018-02-05 13:31:00 99 %
== END 2020-04-06 18:55 | disposition home or self-care (01) ==
LOC: ER 11:07
DX: R10.9 Unspecified abdominal pain (principal); R10.819 Abdominal tenderness, unspecified site; I10 Essential (primary) hypertension; R35.0 Frequency of micturition; Z87.442 Personal history of urinary calculi; Z88.6 Allergy status to analgesic agent; Z88.5 Allergy status to narcotic agent; Z88.8 Allergy status to other drugs, medicaments and biological substances; Z88.4 Allergy status to anesthetic agent; Z91.013 Allergy to seafood
CPT/HCPCS: 99285; 96372; 36415; 83690; 85025; 80053; 81001; 74176; J0500; J1885

== ENCOUNTER 2020-05-25 14:25 | Emergency (ER) | payer SELFPAY ==
--- NOTE | 2020-05-25 14:54 | RADIOLOGY REPORT (SQ) ---
EXAM DESCRIPTION: CT HEAD WITHOUT IMAGES COMPLETED DATE/TIME: 05/25/2020 11:41 am REASON FOR STUDY: ams COMPARISON: 12/11/2015 TECHNIQUE: Axial images acquired through the brain without intravenous contrast. Images reviewed wi th bone, brain and subdural windows. Additional sagittal and coronal reconstructions were generated. Images stored on PACS. All CT scanners at this facility use dose modulation, iterative reconstruction, and/or weight based d osing when appropriate to reduce radiation dose to as low as reasonably achievable (ALARA). [facility]: Dose Right [facility]: CareDose [facility]: Dose Right [facility]: Teradose 4D [facility]: [employer] Technologies RADIATION DOSE: CT Rad equipment meets quality standard of care and radiation dose reduction techniq ues were employed. CTDIvol: 53.2 mGy. DLP: 911 mGy-cm. mGy. LIMITATIONS: None. FINDINGS: VENTRICLES: Normal size and contour. CEREBRUM: No masses. No hemorrhage. No midline shift. No evidence for acute infarction. Normal gra y/white matter differentiation. No areas of low density in the white matter. CEREBELLUM: No masses. No hemorrhage. No alteration of density. No evidence for acute infarction. EXTRAAXIAL SPACES: No fluid collections. No masses. ORBITS AND GLOBE: No intra- or extraconal masses. Normal contour of globe without masses. CALVARIUM: No fracture. PARANASAL SINUSES: No fluid or mucosal thickening. SOFT TISSUES: No mass or hematoma. OTHER: No other significant finding. IMPRESSION: No acute intracranial abnormality on noncontrast CT. EVIDENCE OF ACUTE STROKE: NO. COMMENT: Quality ID # [id number]: Final reports with documentation of one or more dose reduction techniques (e.g., Automated exposure control, adjustment of the mA and/or kV according to patient size, use of iterative reconstruction technique) TECHNICAL DOCUMENTATION: JOB ID: [id number] 2010 [employer]- All Rights Reserved Reading location - IP/workstation name: [email or web address]
--- NOTE | 2020-05-25 15:35 | ER Document Report ---
ED General - General Chief Complaint: Syncope Stated Complaint: AMS Time Seen by Provider: 05/25/20 15:35 TRAVEL OUTSIDE OF THE [place] IN LAST 30 DAYS: No - HPI Notes: 54-year-old female presents following a syncopal event. Patient [place] the [place], she had just use the bathroom, she had stood up and put on her pants, she knows she woke up and she was on the floor. She states that she felt woozy. Patient states that she has not had anything to eat since yesterday, she had breakfast and then crab legs for lunch, she notes that she did take a Benadryl after eating the crab legs. She denies headache, chest pain, shortness of breath, abdominal pain. She states that she has been down and out recently. Her mother a year ago and her birthday was the . She states jacquelin t she has been under a lot of stress. She complains of some right hip and right shoulder discomfort, better if she lays in bed still. Per nursing/EMS report, patient was admitted started Narcan which did not have any change in her status. Reportedly Covid antigen test is negative. - Related Data Allergies/Adverse Reactions: Iodine and Iodide Containing Produc Allergy (Intermediate, Verified 12/19/19 13:12) itching hydrocodone bitartrate [From Vicodin] Allergy (Verified 12/19/19 13:12) ketorolac [From Toradol] Allergy (Verified 04/06/20 16:45) lidocaine [Lidocaine] Allergy (Verified 12/19/19 13:12) propoxyphene napsylate [From Darvocet-N 100] Allergy (Verified 12/19/19 13:12) shellfish derived Allergy (Verified 12/19/19 13:12) itching tramadol Allergy (Verified 01/16/20 08:15) Past Medical History - General Information source: Patient - Social History Smoking Status: Unknown if Ever Smoked Family History: Reviewed & Not Pertinent, DM, Hypertension, Malignancy Patient has homicidal ideation: No - Past Medical History Cardiac Medical History: Reports: Hx Hypertension Denies: Hx Congestive Heart Failure, Hx Heart Attack Pulmonary Medical History: Denies: Hx Asthma, Hx Bronchitis, Hx COPD, Hx Pneumonia, Hx Tuberculosis Neurological Medical History: Reports: Hx Migraine. Denies: Hx Seizures, Hx Parkinson's Disease Renal/ Medical History: Reports: Hx Kidney Stones. Denies: Hx End Stage Renal Disease, Hx Peritoneal Dialysis GI Medical History: Reports: Hx Gastroesophageal Reflux Disease, Hx Ulcer. Denies: Hx Cirrhosis Musculoskeletal Medical History: Denies Hx Arthritis, Denies Hx Multiple Scle rosis, Reports Hx Musculoskeletal Trauma Psychiatric Medical History: Reports: Hx Depression Denies: Hx Bipolar Disorder, Hx Schizophrenia Past Surgical History: Reports: Hx Abdominal Surgery - hernia, Hx Breast Surgery - L biopsy, Hx Inguinal Hernia, Hx Tubal Ligation. Denies: Hx Hysterectomy - Immunizations Immunizations up to date: Yes Hx Diphtheria, Pertussis, Tetanus Vaccination: Yes Review of Systems - Review of Systems Constitutional: denies: Fever EENT: No symptoms reported Cardiovascular: denies: Chest pain Respiratory: denies: Short of breath Gastrointestinal: denies: Abdominal pain, Diarrhea, Nausea, Vomiting Genitourinary: No symptoms reported Female Genitourinary: No symptoms reported Musculoskeletal: See HPI Skin: No symptoms reported Hematologic/Lymphatic: No symptoms reported Neurological/Psychological: denies: Headaches Physical Exam - Vital signs Vitals: Resp Pulse Ox 18 93 05/25/20 14:33 05/25/20 14:33 - General General appearance: Appears well, Alert In distress: None - HEENT Head: Normocephalic, Atraumatic Extraocular movements intact: Yes Pupils: PERRL - Respiratory Chest status: Nontender Breath sounds: Normal - Cardiovascular Rhythm: Regular Heart sounds: Normal auscultation - Abdominal Tenderness: Nontender - Extremities Notes: Mild tenderness to right anterior shoulder, full range of motion. Mild tenderness to lateral right hip, full range of motion. - Neurological Neuro grossly intact: Yes Cognition: Normal Orientation: AAOx4 Notes: Face is symmetric and speech is clear. Pupils are equal and reactive. Strength is symmetric between the upper extremities. Strength is symmetric between the lower extremities. Sensation is grossly intact. Coordination is grossly intact. - Psychological Associated symptoms: Normal affect - Skin Skin Temperature: Warm Course - Re-evaluation Re-evalutation: 54-year-old female presents following syncopal event after she had just stood up after using the bathroom, poor p.o. intake today. On exam she is alert, hemodynamically stable, no gross focal neuro deficits. She denies any cardiopulmonary complaints. Heart RRR, lungs are clear, abdomen is soft. Main complaint is some pain to the right shoulder and right hip, preserved range of motion, no gross deformities, will obtain x-rays. Suspect that syncope is related to relative hypovolemia from no intake today. No reported history of CHF, less likely cardiac in origin at this time. She will undergo laboratory evaluation to assure that no metabolic derangements are present. Check EKG. Patient had a head CT done prior to my evaluation which is negative for acute finding. 05/25/20 18:24 Informed by nursing that patient ate a sandwich, however then had vomiting afterwards, Radha ordered 05/25/20 19:09 Labs grossly unremarkable aside from a mildly elevated phosphorus. I went in to check on patient, she was resting in bed comfortably and using her phone. She reports she is feeling much better, and actually the vomiting is what made her feel back to her normal self. We discussed drinking plenty of fluids and eating regular meals every day. As discussed with her to have follow-up with her [facility] doctor as there are counseling resources that may be available as she is still grieving the loss of her mother. Return precautions given, stable at time of discharge. - Vital Signs Vital signs: Temp Pulse Resp BP Pulse Ox 98.1 F 13 152/98 H 93 05/25/20 19:30 05/25/20 19:01 05/25/20 19:01 05/25/20 19:01 - Laboratory Results Result Diagrams: 05/25/20 14:50 05/25/20 14:50 Laboratory Results Interpreted: 05/25/20 05/25/20 05/25/20 14:46 14:50 14:50 RDW 14.4 H Est GFR ( Amer) 58 L Est GFR (MDRD) Non-Af 48 L Glucose 205 H POC Glucose 193 H Phosphorus 6.3 H Critical Laboratory Results Reviewed: No Critical Results - Radiology Results Critical Radiology Results Reviewed: No Critical Results - EKG Interpretation by Me Additional EKG results interpreted by me: EKG as interpreted by me. Sinus rhythm, rate 94. Narrow QRS, QTC within normal limits. Nonspecific ST changes. No STEMI. Discharge - Discharge Clinical Impression: Syncope Qualifiers: Syncope type: unspecified Qualified Code(s): R55 - Syncope and collapse Disposition: HOME, SELF-CARE Additional Instructions: Drink plenty of fluids and eat regularly throughout the day. Please have very close follow-up with your primary care doctor. Return to the emergency department for any worsening or concerning symptoms.
[2020-05-25] MEDS ORDERED: RINGERS SOLUTION,LACTATED 1,000 ML IV ONE (15:38)
[2020-05-25 15:48] LABS: ABSOLUTE LYMPHOCYTES (AUTO) 2.6 10^3/uL (0.5-4.7); ABSOLUTE MONOCYTES (AUTO) 0.3 10^3/uL (0.1-1.4); ABSOLUTE NEUT (AUTO) 4.2 10^3/uL (1.7-8.2); BASOPHILS % (AUTO) 0.7 % (0-2); EOSINOPHILS % (AUTO) 0.6 % (0-6); HEMATOCRIT 43.3 % (36.0-47.0); HEMOGLOBIN 14.3 g/dL (12.0-15.5); MEAN CORPUSCULAR HEMOGLOBIN 28.7 pg (27.0-33.4); MEAN CORPUSCULAR HGB CONC 32.9 g/dL (32.0-36.0); MEAN CORPUSCULAR VOLUME 87 fl (80-97); MONOCYTES % (AUTO) 4.4 % (3-13); RED BLOOD COUNT 4.96 10^6/uL (3.72-5.28); RED CELL DISTRIBUTION WIDTH 14.4 % (11.5-14.0); SEGMENTED NEUTROPHILS % (AUTO) 58.3 % (42-78); TOTAL CELLS COUNTED % (AUTO) 100 %; WHITE BLOOD COUNT 7.2 10^3/uL (4.0-10.5)
[2020-05-25] MEDS ORDERED: ACETAMINOPHEN 325 MG TABLET PO ONE (15:51)
[2020-05-25 15:55] LABS: ANION GAP 13 (5-19); BLOOD UREA NITROGEN 14 mg/dL (7-20); CARBON DIOXIDE 24 mmol/L (22-30); CHLORIDE 103 mmol/L (98-107); GLUCOSE 205 mg/dL (75-110); PHOSPHORUS 6.3 mg/dL (2.5-4.5); POTASSIUM 3.9 mmol/L (3.6-5.0)
[2020-05-25 16:11] LABS: PLATELET COUNT 172 10^3/uL (150-450)
--- NOTE | 2020-05-25 17:03 | RADIOLOGY REPORT (SQ) ---
EXAM DESCRIPTION: SHOULDER RIGHT 2 OR MORE VIEWS IMAGES COMPLETED DATE/TIME: 05/25/2020 4:26 pm REASON FOR STUDY: fall, pain COMPARISON: None. NUMBER OF VIEWS: Three views. TECHNIQUE: Internal rotation, external rotation, and Y view images acquired of the right shoulder. LIMITATIONS: None. FINDINGS: MINERALIZATION: Normal. BONES: No acute fracture. No worrisome bone lesions. JOINTS: No dislocation. VISUALIZED LUNGS AND RIBS: No pneumothorax. No rib fracture. SOFT TISSUES: No radiopaque foreign body. OTHER: No other significant finding. IMPRESSION: 1. No acute osseous findings. TECHNICAL DOCUMENTATION: JOB ID: [id number] 2010 [employer]- All Rights Reserved Reading location - IP/workstation name: [email or web address]
--- NOTE | 2020-05-25 17:21 | RADIOLOGY REPORT (SQ) ---
EXAM DESCRIPTION: HIP RIGHT AP/LATERAL IMAGES COMPLETED DATE/TIME: 05/25/2020 4:26 pm REASON FOR STUDY: fall, pain COMPARISON: None. NUMBER OF VIEWS: Two views. TECHNIQUE: AP pelvis and additional frog legview of the right hip. LIMITATIONS: None. FINDINGS: MINERALIZATION: Normal. RIGHT HIP: No fracture or dislocation. No worrisome bone lesions. LEFT HIP: No fracture or dislocation. No worrisome bone lesions. Limited views. PUBIS AND ISCHIUM: No fracture. PELVIS: No fracture. SACRUM: No fracture or dislocation. No worrisome bone lesions. LOWER LUMBAR SPINE: No fracture or dislocation. No worrisome bone lesions. No significant disc disea se. SOFT TISSUES: No findings. OTHER: No other significant finding. IMPRESSION: NEGATIVE STUDY OF THE RIGHT HIP. NO RADIOGRAPHIC EVIDENCE OF ACUTE INJURY. TECHNICAL DOCUMENTATION: JOB ID: [id number] 2010 [employer]- All Rights Reserved Reading location - IP/workstation name: [email or web address]
--- NOTE | 2020-05-25 17:45 | EKG REPORT ---
SEVERITY:- BORDERLINE ECG - SINUS RHYTHM BORDERLINE T WAVE ABNORMALITIES : Confirmed by: Gerhard New MD 25-May-2020 17:44:43
[2020-05-25] MEDS ORDERED: ONDANSETRON HCL INJ/PF 4 MG/2 ML SDV IV ONE (18:16)
[2020-05-25 19:13] VITALS: BP 152/98
== END 2020-05-25 19:42 | disposition home or self-care (01) ==
LOC: ER 14:25
DX: R55 Syncope and collapse (principal); R41.82 Altered mental status, unspecified; R11.10 Vomiting, unspecified; I10 Essential (primary) hypertension; Z87.442 Personal history of urinary calculi; Z88.6 Allergy status to analgesic agent
CPT/HCPCS: 93005; 99285; 96361; 96374; 36415; 82962; 83735; 84100; 85025; 80048; 73502; 73030; 70450; 93010; J2405; J7120